=== PATIENT | female | born 1980 | race Caucasian/White ===

== ENCOUNTER 2017-01-22 03:10 | Emergency (ER) | payer MEDICAID ==
[2017-01-22] MEDS ORDERED: Codeine/guaiFENesin 100mg-10 MG/5 ML Soln 118 ML Bottle PO ONE (04:03)
[2017-01-22] MEDS ORDERED: Azithromycin 250 MG Tab PO ONE (04:03)
[2017-01-22 04:24] VITALS: BP 133/78
--- NOTE | 2017-01-22 05:31 | ER ---
DATE SEEN: 01/22/2017 TIME SEEN: 0400. CHIEF COMPLAINT: Hoarseness of the voice. HISTORY OF PRESENT ILLNESS: A 36-year-old female complaining of hoarseness of the voice for at least 4 weeks. It is associated with some coughing that is barky and worse when she lays down, but no fever. No headache. No sore throat. SOCIAL HISTORY: Smoker. ALLERGIES: Amoxicillin. PAST MEDICAL HISTORY: Anemia, type 2 diabetes, obesity, community-acquired pneumonia. PHYSICAL EXAMINATION: GENERAL: Pleasant, not in distress. VITAL SIGNS: Blood pressure is normal, pulse 107, and temperature is 98.1. Oxygenation is 99% on room air. EARS, NOSE, AND THROAT: Negative. NECK: No thyromegaly. CARDIOVASCULAR SYSTEM: Normal. RESPIRATORY SYSTEM: Clear. IMPRESSION: 1. Acute laryngitis. 2. Laryngotracheal bronchitis. TREATMENT: 1. Robitussin with codeine 10 mL q.4 hours p.r.n. 2. Z-Martin. 3. Follow up in the office in 1 to 2 days. Discussed smoking cessation. /[id number] TOMASA/LANNY
== END 2017-01-22 04:15 | disposition home or self-care (01) ==
LOC: FB.ED 03:10
DX: J04.0 Acute laryngitis (principal); J40 Bronchitis, not specified as acute or chronic; E11.9 Type 2 diabetes mellitus without complications; F17.210 Nicotine dependence, cigarettes, uncomplicated; Z88.1 Allergy status to other antibiotic agents
CPT/HCPCS: 99283; A9270

== ENCOUNTER 2017-02-21 09:56 | Observation (INO) | payer MEDICAID, OTHER ==
--- NOTE | 2017-02-21 12:14 | EDM.PDOC ---
ED HPI GENERAL MEDICAL PROBLEM - General Chief Complaint: Upper Extremity Injury/Pain Stated Complaint: rib pain R Time Seen by Provider: 02/21/17 10:00 Source of Information: Reports: Patient History Limitations: Reports: No Limitations - History of Present Illness INITIAL COMMENTS - FREE TEXT/NARRATIVE: 36 y.o.w.f obese w f with h/o gestational Diabetes and Anemia, came to the ed due to acute onset of RUQ of the abdomen, weakness and frequent urinations in the past few months. No chest pain. She was not Dx'd with diabetes yet. No trauma. Mild nausea, no vomiting. No other acute medical issues. BP 142/114 Pulse 104 Temp 37.2 Pulse ox 98% on RA Onset: Today Onset Date: 02/21/17 Onset Time: 06:00 Duration: Hour(s):, Intermittent Location: Reports: Abdomen (RUQ of abdomen) Quality: Reports: Ache, Burning, Dull, Stabbing, Throbbing Severity: Moderate Improves with: Reports: Medication Worsens with: Reports: Eating Context: Reports: Other (RUQ of abdomen) Associated Symptoms: Reports: Loss of Appetite, Nausea/Vomiting (nausea), Weakness, Other (frequest urinations, allways drinking water.) right rib Pain Score (Numeric/FACES): 8 - Related Data Allergies Allergy/AdvReac Type Severity Reaction Status Date / Time amoxicillin [Amoxicillin] Allergy Hives Verified 02/21/17 10:07 Home Meds: Home Meds NK [No Known Home Meds] 01/22/17 [History] Past Medical History - Past Health History Medical/Surgical History: Denies Medical/Surgical History Other Musculoskeletal History: restless legs Endocrine/Metabolic History: Reports: Other (See Below) Hematologic History: Reports: Anemia - Past Surgical History Other Musculoskeletal Surgeries/Procedures:: Carpel tunnel Social & Family History - Family History Family Medical History: Noncontributory - Tobacco Use Smoking Status *Q: Current Every Day Smoker Years of Tobacco use: 23 Packs/Tins Daily: 0.5 Used Tobacco, but Quit: No Second Hand Smoke Exposure: No - Caffeine Use Caffeine Use: Reports: Energy Drinks, Soda - Alcohol Use Days Per Week of Alcohol Use: 0 - Recreational Drug Use Recreational Drug Use: No Review of Systems - Review of Systems Review Of Systems: See Below Constitutional: Reports: Weakness Eyes: Reports: No Symptoms Ears: Reports: No Symptoms Nose: Reports: No Symptoms Mouth/Throat: Reports: No Symptoms Respiratory: Reports: No Symptoms Cardiovascular: Reports: No Symptoms GI/Abdominal: Reports: Abdominal Pain Genitourinary: Reports: No Symptoms Musculoskeletal: Reports: No Symptoms Skin: Reports: No Symptoms Neurological: Reports: No Symptoms Psychiatric: Reports: No Symptoms ED EXAM, GENERAL - Physical Exam Exam: See Below Exam Limited By: No Limitations General Appearance: Alert, WD/WN, Moderate Distress, Obese (morbid) Eye Exam: Bilateral Eye: Normal Inspection Ears: Normal External Exam Ear Exam: Bilateral Ear: Auricle Normal Nose: Normal Inspection, Normal Mucosa Throat/Mouth: Normal Lips, Other (dry mucosal mmebrane) Head: Atraumatic, Normocephalic Neck: Normal Inspection, Supple, Non-Tender, Full Range of Motion Respiratory/Chest: No Respiratory Distress, Lungs Clear, Normal Breath Sounds Cardiovascular: Normal Peripheral Pulses, Regular Rate, Rhythm, No Edema, No Gallop Peripheral Pulses: 1+: Brachial (R) GI/Abdominal: Normal Bowel Sounds, Tender (RUQ of abd. with pos smyth sign.) (Female) Exam: Deferred Rectal (Female) Exam: Deferred Back Exam: Normal Inspection, Full Range of Motion Extremities: Normal Inspection, Normal Range of Motion, Non-Tender, No Pedal Edema, Normal Capillary Refill Neurological: Alert, Oriented, CN II-XII Intact, Normal Cognition, Normal Gait Psychiatric: Normal Affect, Normal Mood Skin Exam: Warm, Dry, Intact, Normal Color, No Rash Lymphatic: No Adenopathy Course - Vital Signs Text/Narrative:: 36 y.o.w.f morbid obese w f with h/o gestational Diabetes and Anemia, came to the ed due to acute onset of RUQ of the abdomen, weakness and frequent urinations in the past few months. No chest pain. She was not Dx'd with diabetes yet. No trauma. Mild nausea, no vomiting. No other acute medical issues. Pt was on Metformin at some time. BP 142/114 Pulse 104 Temp 37.2 Pulse ox 98% on RA PE: Obese, RUQ abd. pain with pos Smyth sign, nausea Imaging: Gall stones, signs of cholecystitis, official report is pending Labs: GLC 425 WBC 7.9 HGB 9.6 HCT 31.1 Na 134 K 3.8 HGBA1C 11.5 UA pos for glucosuria Impression: Cholecystitis, Cholelithiasis. Elevated HGB A1C (11.5), Hyperglycemia, Glucosuria, Anemia. Tx: Dilaudid, Mefoxin, NS, Zofran, Insulin (7 units regular)SQ. 12.01 pm Consultation: , Surgeon: Cholecytectomy at 2 pm, call anesthesia Plan: Dr. Harper tooke the care over at 2 pm, will ask pt to F/U with her PMD Reexam: Pt was stable while here in the ed. Please check the nursing notes for vital signs Last Recorded V/S: Last Vital Signs Temp 37.0 C 02/21/17 17:32 Pulse 107 H 02/21/17 17:47 Resp 18 02/21/17 17:47 BP 105/49 L 02/21/17 17:47 Pulse Ox 95 02/21/17 17:47 - Orders/Labs/Meds Orders: Active Orders 24 hr Category Date Time Status Patient Status [ADT] Routine ADT 02/21/17 15:44 Active Blood Glucose Check, Bedside [RC] ONETIME Care 02/21/17 13:03 Active Blood Glucose Check, Bedside [RC] ONETIME Care 02/21/17 13:43 Active Communication Order [RC] ASDIRECTED Care 02/21/17 13:03 Active Cooling Warming Measures [RC] ASDIRECTED Care 02/21/17 13:03 Active Diabetes Education [RC] Click to Edit Care 02/21/17 15:49 Active Notify Provider [RC] PRN Care 02/21/17 13:03 Active Oxygen Therapy [RC] ASDIRECTED Care 02/21/17 13:03 Active Oxygen Therapy [RC] PRN Care 02/21/17 15:44 Active RT Incentive Spirometry [RC] Q2HWA Care 02/21/17 15:43 Active Up With Assistance [RC] ASDIRECTED Care 02/21/17 15:43 Active Vital Signs [RC] PER UNIT ROUTINE Care 02/21/17 13:03 Active Vital Signs [RC] PER UNIT ROUTINE Care 02/21/17 15:44 Active Clear Liquid Diet [DIET] Diet 02/21/17 Dinner Ordered Acetaminophen/HYDROcodone [[place] 325-7.5 MG] Med 02/21/17 15:43 Active 1 tab PO Q4H PRN Albuterol [Proventil Neb Soln] Med 02/21/17 13:02 Active 2.5 mg NEB ONETIME PRN Lactated Ringers [Ringers, Lactated] 1,000 ml Med 02/21/17 13:15 Active IV ASDIRECTED Lactated Ringers [Ringers, Lactated] 1,000 ml Med 02/21/17 15:45 Active IV ASDIRECTED Morphine Med 02/21/17 15:43 Active 2 mg IVPUSH Q1H PRN cefOXitin [Mefoxin in Dextrose,Iso-Osm 1 GM/50 ML] 1 gm Med 02/21/17 20:00 Active Premix Bag 1 bag IV Q6H Glucose Management Sub Q Reflex [OM.PC] Click to Edit Oth 02/21/17 15:43 Ordered Patient May [OM.PC] Click to Edit Oth 02/21/17 13:03 Ordered Resuscitation Status Routine Resus Stat 02/21/17 15:43 Ordered Medication Orders Hydrocodone Bitart/Acetaminophen ([place] 325-7.5 Mg) 1 tab PO Q4H PRN PRN Reason: Pain (moderate 4-6) Albuterol (Proventil Neb Soln) 2.5 mg NEB ONETIME PRN PRN Reason: Wheezing Last Admin: 02/21/17 13:28 Dose: 2.5 mg Lactated Ringer's (Ringers, Lactated) 1,000 mls @ 0 mls/hr IV ASDIRECTED [facility] PRN Reason: KVO Cefoxitin Sodium 1 gm/ Premix 50 mls @ 100 mls/hr IV Q6H OCTAVIO Lactated Ringer's (Ringers, Lactated) 1,000 mls @ 125 mls/hr IV ASDIRECTED [facility] Last Admin: 02/21/17 18:29 Dose: 125 mls/hr Insulin Aspart (Novolog) 0 unit SUBCUT QIDACANDBED [facility] PRN Reason: Protocol Last Admin: 02/21/17 17:27 Dose: 3 units Morphine Sulfate (Morphine) 2 mg IVPUSH Q1H PRN PRN Reason: Pain (severe 7-10) Nicotine (Habitrol) 21 mg TRDERM Q24H [facility] Last Admin: 02/21/17 17:28 Dose: 21 mg Labs: Laboratory Tests 01/05/18 01/05/18 01/05/18 Range/Units 10:13 10:13 10:22 WBC 7.9 (4.5-12.0) X10-3/uL RBC 4.98 (3.23-5.20) x10(6)uL Hgb 9.6 L (11.5-15.5) g/dL Hct 31.1 (30.0-51.3) % MCV 62.5 L (80-96) fL MCH 19.3 L (27.7-33.6) pg MCHC 30.9 L (32.2-35.4) g/dL RDW 16.9 H (11.5-15.5) % Plt Count 373 H (125-369) X10(3)uL MPV 8.4 (7.4-10.4) fL Neut % (Auto) 66.1 (46-82) % Lymph % (Auto) 25.5 (13-37) % Rock % (Auto) 6.1 (4-12) % Eos % (Auto) 2 (1.0-5.0) % Baso % (Auto) 1 (0-2) % Neut # (Auto) 5.3 (1.6-8.3) # Lymph # (Auto) 2.0 (0.6-5.0) # Rock # (Auto) 0.5 (0.0-1.3) # Eos # (Auto) 0.1 (0.0-0.8) # Baso # (Auto) 0.0 (0.0-0.2) # Sodium (135-145) mmol/L Potassium (3.5-5.3) mmol/L Chloride (100-110) mmol/L Carbon Dioxide (21-32) mmol/L BUN (7-18) mg/dL Creatinine (0.55-1.02) mg/dL Est Cr Clr Drug Dosing mL/min Estimated GFR (MDRD) (>60) BUN/Creatinine Ratio (9-20) Glucose (80-116) mg/dL POC Glucose (80-116) mg/dL Hemoglobin A1c (4.5-6.2) % Calcium (8.6-10.2) mg/dL Total Bilirubin (0.1-1.3) mg/dL Direct Bilirubin (0.10-0.20) mg/dL AST (5-25) IU/L ALT (12-36) U/L Alkaline Phosphatase (56-112) IU/L Total Protein (6.0-8.0) g/dL Albumin (3.5-5.2) g/dL Amylase (25-115) U/L Urine Color Yellow (YELLOW) Urine Appearance Slightly cloudy (CLEAR) Urine pH 6.0 (5.0-6.5) Ur Specific [place] 1.015 (1.010-1.025) Urine Protein Negative (NEGATIVE) mg/dL Urine Glucose (UA) >1000 H (NEGATIVE) mg/dL Urine Ketones Negative (NEGATIVE) mg/dL Urine Occult Blood Negative (NEGATIVE) Urine Nitrite Negative (NEGATIVE) Urine Bilirubin Negative (NEGATIVE) Urine Urobilinogen Normal (NEGATIVE) mg/dL Ur Leukocyte Esterase Negative (NEGATIVE) Urine WBC 0-5 (0) Ur Squamous Epith Cells Few H (NS,R,O) Urine Bacteria Few H (NS) Urine HCG, Qual Negative (NEGATIVE) 02/21/17 02/21/17 02/21/17 Range/Units 10:22 10:22 12:30 WBC (4.5-12.0) X10-3/uL RBC (3.23-5.20) x10(6)uL Hgb (11.5-15.5) g/dL Hct (30.0-51.3) % MCV (80-96) fL MCH (27.7-33.6) pg MCHC (32.2-35.4) g/dL RDW (11.5-15.5) % Plt Count (125-369) X10(3)uL MPV (7.4-10.4) fL Neut % (Auto) (46-82) % Lymph % (Auto) (13-37) % Rock % (Auto) (4-12) % Eos % (Auto) (1.0-5.0) % Baso % (Auto) (0-2) % Neut # (Auto) (1.6-8.3) # Lymph # (Auto) (0.6-5.0) # Rock # (Auto) (0.0-1.3) # Eos # (Auto) (0.0-0.8) # Baso # (Auto) (0.0-0.2) # Sodium 134 L (135-145) mmol/L Potassium 4.4 (3.5-5.3) mmol/L Chloride 100 (100-110) mmol/L Carbon Dioxide 25 (21-32) mmol/L BUN 13 (7-18) mg/dL Creatinine 0.9 (0.55-1.02) mg/dL Est Cr Clr Drug Dosing 78.51 mL/min Estimated GFR (MDRD) > 60 (>60) BUN/Creatinine Ratio 14.4 (9-20) Glucose 483 H* (80-116) mg/dL POC Glucose 306 H (80-116) mg/dL Hemoglobin A1c 11.8 H (4.5-6.2) % Calcium 8.6 (8.6-10.2) mg/dL Total Bilirubin 0.3 (0.1-1.3) mg/dL Direct Bilirubin 0.05 L (0.10-0.20) mg/dL AST 15 (5-25) IU/L ALT 25 (12-36) U/L Alkaline Phosphatase 91 (56-112) IU/L Total Protein 7.4 (6.0-8.0) g/dL Albumin 3.1 L (3.5-5.2) g/dL Amylase 34 (25-115) U/L Urine Color (YELLOW) Urine Appearance (CLEAR) Urine pH (5.0-6.5) Ur Specific [place] (1.010-1.025) Urine Protein (NEGATIVE) mg/dL Urine Glucose (UA) (NEGATIVE) mg/dL Urine Ketones (NEGATIVE) mg/dL Urine Occult Blood (NEGATIVE) Urine Nitrite (NEGATIVE) Urine Bilirubin (NEGATIVE) Urine Urobilinogen (NEGATIVE) mg/dL Ur Leukocyte Esterase (NEGATIVE) Urine WBC (0) Ur Squamous Epith Cells (NS,R,O) Urine Bacteria (NS) Urine HCG, Qual (NEGATIVE) 02/21/17 Range/Units 13:59 WBC (4.5-12.0) X10-3/uL RBC (3.23-5.20) x10(6)uL Hgb (11.5-15.5) g/dL Hct (30.0-51.3) % MCV (80-96) fL MCH (27.7-33.6) pg MCHC (32.2-35.4) g/dL RDW (11.5-15.5) % Plt Count (125-369) X10(3)uL MPV (7.4-10.4) fL Neut % (Auto) (46-82) % Lymph % (Auto) (13-37) % Rock % (Auto) (4-12) % Eos % (Auto) (1.0-5.0) % Baso % (Auto) (0-2) % Neut # (Auto) (1.6-8.3) # Lymph # (Auto) (0.6-5.0) # Rock # (Auto) (0.0-1.3) # Eos # (Auto) (0.0-0.8) # Baso # (Auto) (0.0-0.2) # Sodium (135-145) mmol/L Potassium (3.5-5.3) mmol/L Chloride (100-110) mmol/L Carbon Dioxide (21-32) mmol/L BUN (7-18) mg/dL Creatinine (0.55-1.02) mg/dL Est Cr Clr Drug Dosing mL/min Estimated GFR (MDRD) (>60) BUN/Creatinine Ratio (9-20) Glucose (80-116) mg/dL POC Glucose 257 H (80-116) mg/dL Hemoglobin A1c (4.5-6.2) % Calcium (8.6-10.2) mg/dL Total Bilirubin (0.1-1.3) mg/dL Direct Bilirubin (0.10-0.20) mg/dL AST (5-25) IU/L ALT (12-36) U/L Alkaline Phosphatase (56-112) IU/L Total Protein (6.0-8.0) g/dL Albumin (3.5-5.2) g/dL Amylase (25-115) U/L Urine Color (YELLOW) Urine Appearance (CLEAR) Urine pH (5.0-6.5) Ur Specific [place] (1.010-1.025) Urine Protein (NEGATIVE) mg/dL Urine Glucose (UA) (NEGATIVE) mg/dL Urine Ketones (NEGATIVE) mg/dL Urine Occult Blood (NEGATIVE) Urine Nitrite (NEGATIVE) Urine Bilirubin (NEGATIVE) Urine Urobilinogen (NEGATIVE) mg/dL Ur Leukocyte Esterase (NEGATIVE) Urine WBC (0) Ur Squamous Epith Cells (NS,R,O) Urine Bacteria (NS) Urine HCG, Qual (NEGATIVE) Meds: Medications Generic Name Dose Route Start Last Admin Trade Name Freq PRN Reason Stop Dose Admin Hydrocodone Bitart/Acetaminophen 1 tab 02/21/17 15:43 [place] 325-7.5 Mg PO Q4H PRN Pain (moderate 4-6) Albuterol 2.5 mg 02/21/17 13:02 02/21/17 13:28 Proventil Neb Soln NEB 2.5 mg ONETIME PRN Administration Wheezing Lactated Ringer's 1,000 mls @ 0 mls/hr 02/21/17 13:15 Ringers, Lactated IV ASDIRECTED [facility] KVO Cefoxitin Sodium 1 gm/ Premix 50 mls @ 100 mls/hr 02/21/17 20:00 IV Q6H [facility] Lactated Ringer's 1,000 mls @ 125 mls/hr 02/21/17 15:45 02/21/17 18:29 Ringers, Lactated IV 125 mls/hr ASDIRECTED [facility] Administration Insulin Aspart 0 unit 02/21/17 17:30 02/21/17 17:27 Novolog SUBCUT 3 units QIDACANDBED [facility] Administration Protocol Morphine Sulfate 2 mg 02/21/17 15:43 Morphine IVPUSH Q1H PRN Pain (severe 7-10) Nicotine 21 mg 02/21/17 17:00 02/21/17 17:28 Habitrol TRDERM 21 mg Q24H [facility] Administration Discontinued Medications Generic Name Dose Route Start Last Admin Trade Name Freq PRN Reason Stop Dose Admin Albuterol 2.5 mg 02/21/17 13:02 Proventil Neb Soln NEB ONETIME PRN Wheezing Cefoxitin Sodium 2 gm 02/21/17 13:30 02/21/17 13:57 Mefoxin IV 02/21/17 13:31 2 gm ONETIME ONE Administration Fentanyl 50 mcg 02/21/17 13:02 Sublimaze IVPUSH Q5M PRN Pain (severe 7-10) Hydromorphone HCl 1 mg 02/21/17 12:02 02/21/17 12:25 Dilaudid IVPUSH 02/21/17 12:03 1 mg ONETIME STA Administration Hydromorphone HCl 0.2 mg 02/21/17 13:02 Dilaudid IVPUSH Q10M PRN Pain (moderate 4-6) Hydromorphone HCl 0.2 mg 02/21/17 13:02 Dilaudid IV Q10M PRN Pain (severe 7-10) Sodium Chloride 1,000 mls @ 125 mls/hr 02/21/17 12:15 02/21/17 12:16 Normal Saline IV 125 mls/hr ASDIRECTED [facility] Administration Cefoxitin Sodium 1 gm/ Sodium 50 mls @ 100 mls/hr 02/21/17 12:04 02/21/17 14: 00 Chloride IV 02/21/17 12:33 Not Given ONETIME STA Insulin Human Regular 10 unit 02/21/17 17:30 Humulin R SUBCUT BIDAC [facility] Protocol Insulin Human Regular 7 unit 02/21/17 12:32 02/21/17 12:40 Humulin R SUBCUT 02/21/17 12:33 7 units ONETIME STA Administration Protocol Naloxone HCl 0.2 mg 02/21/17 13:02 Narcan IVPUSH Q1M PRN Respiratory Depression Ondansetron HCl 8 mg 02/21/17 12:17 02/21/17 12:44 Zofran IVPUSH 02/21/17 12:18 8 mg ONETIME ONE Administration Ondansetron HCl 4 mg 02/21/17 13:02 Zofran IVPUSH ONETIME PRN Nausea/Vomiting Promethazine HCl 12.5 mg 02/21/17 13:02 Phenergan IM Q4H PRN Nausea/Vomiting Departure - Departure Time of Disposition: 19:43 Disposition: Refer to Observation Condition: Fair Clinical Impression: Cholelithiasis Qualifiers: Cholelithiasis location: gallbladder Cholecystitis presence: with cholecystitis Cholecystitis acuity: acute Biliary obstruction: without biliary obstruction Qualified Code(s): K80.00 - Calculus of gallbladder with acute cholecystitis without obstruction - Discharge Information
[2017-02-21] MEDS ORDERED: Sodium Chloride 0.9% 1,000 ML IV SCH (12:15)
[2017-02-21] MEDS ORDERED: Ondansetron 4 MG/2 ML SDV IVPUSH ONE (12:17)
[2017-02-21] MEDS: HYDROmorphone 2 MG/ML SDV IVPUSH STA ×2 (12:22→12:25)
[2017-02-21] MEDS ORDERED: Insulin Regular, Human 100 Units/ML 3 ML Vial SUBCUT STA (12:32)
[2017-02-21] MEDS ORDERED: cefOXitin 2 GM in Sodium Chloride 0.9% 100 ML IV STA (12:33)
[2017-02-21] MEDS ORDERED: Ondansetron 4 MG/2 ML SDV IVPUSH PRN (13:02)
[2017-02-21] MEDS ORDERED: HYDROmorphone 2 MG/ML SDV IV PRN (13:02)
[2017-02-21] MEDS ORDERED: HYDROmorphone 2 MG/ML SDV IVPUSH PRN (13:02)
[2017-02-21] MEDS ORDERED: Promethazine 25 MG/ML SDV IM PRN (13:02)
[2017-02-21] MEDS ORDERED: Naloxone 0.4 MG/ML SDV IVPUSH PRN (13:02)
[2017-02-21] MEDS ORDERED: fentaNYL 100 MCG/2 ML SDV IVPUSH PRN (13:02)
[2017-02-21] MEDS ORDERED: Albuterol 0.083% 2.5 MG/3 ML Neb Soln NEB PRN ×2 (13:02)
[2017-02-21] MEDS ORDERED: Lactated Ringers 1,000 ML IV SCH (13:15)
--- NOTE | 2017-02-21 13:15 | US ---
INDICATION: Right upper quadrant abdominal pain. RIGHT UPPER QUADRANT/GALLBLADDER ULTRASOUND: Multiple ultrasonic images were obtained 02/21/2017. No comparison study was available. The gallbladder, although it was normal in size measuring 7.6 x 1.7 x 2.8 cm, did include a 2.33-cm calculus, which moved with change in position of the patient. Although also there was no pericholecystic fluid, wall thickening, or sludge, there was a positive ultrasonic Smyth sign, which can be seen with cholecystitis. This should be correlated clinically, therefore, as no other signs of cholecystitis were identified. The common bile duct was normal in caliber at 3.8 mm. The right kidney appeared normal, measuring 12.4 x 4.4 x 5.7 cm. The liver is somewhat echogenic, suggesting fatty infiltration. IMPRESSION: 1. Cholelithiasis with positive ultrasonic Smyth sign - correlate clinically as to the possibility of acute cholecystitis. 2. Fatty infiltration of the liver. Report was given by phone to Dr. Moe at 1200 hours, 02/21/2017. SUDHA
[2017-02-21] MEDS ORDERED: cefOXitin 2 GM Vial IV ONE (13:30)
--- NOTE | 2017-02-21 14:05 | PREOP ---
ADMISSION DATE: 02/21/2017 HISTORY: This is a 36-year-old female, who presents to the emergency room with a several-day history of right upper quadrant abdominal pain that has been progressively worsening. Laboratory evaluation reveals a normal WBC. Glucose is 483 with an A1c of 11.8. She has been known to have diabetes in the past and states that got better when she lost significant weight. Evaluation today reveals that her abdominal ultrasound shows evidence of acute cholecystitis with positive Smyth sign. She is afebrile. PAST MEDICAL HISTORY: Reviewed. MEDICATIONS: Reviewed. ALLERGIES: Medical allergies, reviewed. PHYSICAL EXAMINATION: GENERAL: Reveals a pleasant lady, resting comfortably. She has received some pain medication. HEENT: Her sclerae are white. SKIN: Not jaundiced. LUNGS: Clear. Respirations are nonlabored. HEART: Regular rate and rhythm without murmur. ABDOMEN: Right upper quadrant tenderness with guarding. The rest of her abdomen is soft and no masses or hernias are palpable. ASSESSMENT: Acute cholecystitis and cholelithiasis. PLAN: The patient will be scheduled for laparoscopic cholecystectomy this afternoon. IV antibiotics have been given. We have discussed the procedure as well as the risks and complications of bleeding, infection, anesthesia, bile leakage, bile duct injury, needing to convert to an open procedure. Informed consent was obtained. /[id number] SAMARIA/LANNY HALEY
[2017-02-21] MEDS ORDERED: Morphine 2 MG/ML Syringe IVPUSH PRN (15:43)
--- NOTE | 2017-02-21 15:43 | PCM.OPNOTE ---
- General Post-Op/Procedure Note Date of Surgery/Procedure: 02/21/17 Operative Procedure(s): Lap [place] Findings: Cholecystitis Pre Op Diagnosis: Acute cholecystitisand Cholelithiasis Post-Op Diagnosis: Same Anesthesia Technique: General ET Tube Primary Surgeon: Luis Harper Anesthesia Provider: Douglas Tatum Pathology: Gallbladder EBL in mLs: 10 Complications: None Condition: Fair
[2017-02-21] MEDS ORDERED: Lidocaine 2% 100 MG/5 ML Syringe IVPUSH ONE (15:54)
[2017-02-21] MEDS ORDERED: Midazolam 1 MG/ML 2 ML SDV IV ONE (15:54)
[2017-02-21] MEDS ORDERED: Neostigmine Methylsulfate 1 MG/ML 5 ML Syringe IV ONE (15:54)
[2017-02-21] MEDS ORDERED: HYDROmorphone 2 MG/ML SDV IV ONE (15:54)
[2017-02-21] MEDS ORDERED: Rocuronium 50 MG/5 ML Vial IV ONE (15:54)
[2017-02-21] MEDS ORDERED: fentaNYL 100 MCG/2 ML SDV IV ONE (15:54)
[2017-02-21] MEDS ORDERED: Sodium Chloride 0.9% 1,000 ML IV ONE (15:54)
[2017-02-21] MEDS ORDERED: Propofol 200 MG/20 ML SDV IV ONE (15:54)
[2017-02-21] MEDS ORDERED: Succinylcholine 200 MG/10 ML MDV IV ONE (15:54)
[2017-02-21] MEDS ORDERED: Nicotine 21 MG/24 Hr Patch TRDERM SCH (17:00)
[2017-02-21] MEDS: Insulin Aspart 100 Units/ML 3 ML Pen SUBCUT SCH ×2 (17:27→20:57)
[2017-02-21] MEDS ORDERED: Insulin Regular, Human 100 Units/ML 3 ML Vial SUBCUT SCH (17:30)
[2017-02-21] MEDS: Lactated Ringers 1,000 ML IV SCH (18:29)
[2017-02-21] MEDS: cefOXitin 1 GM in Premix Bag 1 BAG IV SCH (20:07)
[2017-02-21] MEDS: Acetaminophen/HYDROcodone 325-7.5 MG Tab PO PRN (21:06)
[2017-02-22] MEDS: Acetaminophen/HYDROcodone 325-7.5 MG Tab PO PRN ×2 (01:10→06:28)
[2017-02-22] MEDS: cefOXitin 1 GM in Premix Bag 1 BAG IV SCH ×2 (02:06→07:34)
[2017-02-22] MEDS: Lactated Ringers 1,000 ML IV SCH (04:40)
[2017-02-22] MEDS: Insulin Aspart 100 Units/ML 3 ML Pen SUBCUT SCH (07:30)
[2017-02-22 09:30] VITALS: BP 100/56
--- NOTE | 2017-02-22 10:22 | PCM.SURGPN ---
- General Info Date of Service: 02/22/17 POD#: 1 Functional Status: Reports: Pain Controlled, Tolerating Diet, Ambulating, Urinating - Review of Systems General: Reports: No Symptoms Gastrointestinal: Reports: Abdominal Pain (gone in RUQ; mild incisional pain) - Patient Data Vitals - Most Recent: Last Vital Signs Temp 98 F 02/22/17 08:00 Pulse 70 02/22/17 10:00 Resp 18 02/22/17 08:00 BP 100/56 L 02/22/17 08:00 Pulse Ox 95 02/22/17 10:00 Weight - Most Recent: 111.13 kg I&O - Last 24 Hours: Intake & Output 02/21/17 02/22/17 02/22/17 22:59 06:59 14:59 Intake Total 738 1389 Output Total 350 Balance 388 1389 Lab Results Last 24 Hrs: Laboratory Results - last 24 hr 02/21/17 02/21/17 02/21/17 Range/Units 16:06 17:27 20:56 POC Glucose 282 H 228 H 274 H (80-116) mg/dL 02/22/17 Range/Units 06:21 POC Glucose 239 H (80-116) mg/dL Med Orders - Current: Current Medications Hydrocodone Bitart/Acetaminophen ([place] 325-7.5 Mg) 1 tab PO Q4H PRN PRN Reason: Pain (moderate 4-6) Last Admin: 02/22/17 06:28 Dose: 1 tab Albuterol (Proventil Neb Soln) 2.5 mg NEB ONETIME PRN PRN Reason: Wheezing Last Admin: 02/21/17 13:28 Dose: 2.5 mg Lactated Ringer's (Ringers, Lactated) 1,000 mls @ 0 mls/hr IV ASDIRECTED [facility] PRN Reason: KVO Cefoxitin Sodium 1 gm/ Premix 50 mls @ 100 mls/hr IV Q6H [facility] Last Admin: 02/22/17 07:34 Dose: 100 mls/hr Lactated Ringer's (Ringers, Lactated) 1,000 mls @ 125 mls/hr IV ASDIRECTED [facility] Last Admin: 02/22/17 04:40 Dose: 125 mls/hr Insulin Aspart (Novolog) 0 unit SUBCUT QIDACANDBED [facility] PRN Reason: Protocol Last Admin: 02/22/17 07:30 Dose: 3 units Morphine Sulfate (Morphine) 2 mg IVPUSH Q1H PRN PRN Reason: Pain (severe 7-10) Nicotine (Habitrol) 21 mg TRDERM Q24H [facility] Last Admin: 02/21/17 17:28 Dose: 21 mg Discontinued Medications Albuterol (Proventil Neb Soln) 2.5 mg NEB ONETIME PRN PRN Reason: Wheezing Cefoxitin Sodium (Mefoxin) 2 gm IV ONETIME ONE Stop: 02/21/17 13:31 Last Admin: 02/21/17 13:57 Dose: 2 gm Fentanyl (Sublimaze) 50 mcg IVPUSH Q5M PRN PRN Reason: Pain (severe 7-10) Hydromorphone HCl (Dilaudid) 1 mg IVPUSH ONETIME STA Stop: 02/21/17 12:03 Last Admin: 02/21/17 12:25 Dose: 1 mg Hydromorphone HCl (Dilaudid) 0.2 mg IVPUSH Q10M PRN PRN Reason: Pain (moderate 4-6) Hydromorphone HCl (Dilaudid) 0.2 mg IV Q10M PRN PRN Reason: Pain (severe 7-10) Sodium Chloride (Normal Saline) 1,000 mls @ 125 mls/hr IV ASDIRECTED [facility] Last Admin: 02/21/17 12:16 Dose: 125 mls/hr Cefoxitin Sodium 1 gm/ Sodium (Chloride) 50 mls @ 100 mls/hr IV ONETIME STA Stop: 02/21/17 12:33 Last Admin: 02/21/17 14:00 Dose: Not Given Cefoxitin Sodium (Mefoxin In Dextrose,Iso-Osm 1 Gm/50 Ml) Confirm Administered Dose 50 mls @ as directed .ROUTE .STK-MED ONE Stop: 02/22/17 01:08 Last Admin: 02/22/17 02:28 Dose: Not Given Insulin Human Regular (Humulin R) 10 unit SUBCUT BIDAC [facility] PRN Reason: Protocol Insulin Human Regular (Humulin R) 7 unit SUBCUT ONETIME STA PRN Reason: Protocol Stop: 02/21/17 12:33 Last Admin: 02/21/17 12:40 Dose: 7 units Naloxone HCl (Narcan) 0.2 mg IVPUSH Q1M PRN PRN Reason: Respiratory Depression Ondansetron HCl (Zofran) 8 mg IVPUSH ONETIME ONE Stop: 02/21/17 12:18 Last Admin: 02/21/17 12:44 Dose: 8 mg Ondansetron HCl (Zofran) 4 mg IVPUSH ONETIME PRN PRN Reason: Nausea/Vomiting Promethazine HCl (Phenergan) 12.5 mg IM Q4H PRN PRN Reason: Nausea/Vomiting - Exam Wound/Incisions: Healing Well General: Alert, Oriented, Cooperative GI/Abdominal Exam: Soft, Non-Tender - Problem List Review Problem List Initiated/Reviewed/Updated: Yes - My Orders Last 24 Hours: Active Orders 24 hr Category Date Time Status Accu Check [Blood Glucose Check, Bedside] [RC] Care 02/21/17 20:32 Active QIDACANDBED Consistent Carbohydrate Diet [DIET] Diet 02/22/17 Breakfast Active Insulin Aspart [NovoLOG] Med 02/21/17 17:30 Active 0 unit SUBCUT QIDACANDBED Nicotine [Habitrol] Med 02/21/17 17:00 Active 21 mg TRDERM Q24H Medication Orders Hydrocodone Bitart/Acetaminophen ([place] 325-7.5 Mg) 1 tab PO Q4H PRN PRN Reason: Pain (moderate 4-6) Last Admin: 02/22/17 06:28 Dose: 1 tab Admin: 02/22/17 01:10 Dose: 1 tab Admin: 02/21/17 21:06 Dose: 1 tab Albuterol (Proventil Neb Soln) 2.5 mg NEB ONETIME PRN PRN Reason: Wheezing Last Admin: 02/21/17 13:28 Dose: 2.5 mg Lactated Ringer's (Ringers, Lactated) 1,000 mls @ 0 mls/hr IV ASDIRECTED [facility] PRN Reason: KVO Cefoxitin Sodium 1 gm/ Premix 50 mls @ 100 mls/hr IV Q6H [facility] Last Admin: 02/22/17 07:34 Dose: 100 mls/hr Infusion: 02/22/17 02:36 Dose: 100 mls/hr Admin: 02/22/17 02:06 Dose: 100 mls/hr Infusion: 02/21/17 20:37 Dose: 100 mls/hr Admin: 02/21/17 20:07 Dose: 100 mls/hr Lactated Ringer's (Ringers, Lactated) 1,000 mls @ 125 mls/hr IV ASDIRECTED [facility] Last Admin: 02/22/17 04:40 Dose: 125 mls/hr Infusion: 02/22/17 02:29 Dose: 125 mls/hr Admin: 02/21/17 18:29 Dose: 125 mls/hr Insulin Aspart (Novolog) 0 unit SUBCUT QIDACANDBED [facility] PRN Reason: Protocol Last Admin: 02/22/17 07:30 Dose: 3 units Admin: 02/21/17 20:57 Dose: 4 units Admin: 02/21/17 17:27 Dose: 3 units Morphine Sulfate (Morphine) 2 mg IVPUSH Q1H PRN PRN Reason: Pain (severe 7-10) Nicotine (Habitrol) 21 mg TRDERM Q24H [facility] Last Admin: 02/21/17 17:28 Dose: 21 mg - Assessment Assessment (Free Text/Narrative):: Doing well - Plan Plan (Free Text/Narrative):: Discharge to home f/u with me and PCP next week for diabetes care
--- NOTE | 2017-02-27 18:57 | OR ---
DATE OF OPERATION: 02/27/2017 SURGEON: Luis Harper MD PREOPERATIVE DIAGNOSES: Acute cholecystitis and cholelithiasis. POSTOPERATIVE DIAGNOSES: Acute cholecystitis and cholelithiasis. PROCEDURE: Laparoscopic cholecystectomy. ANESTHESIA: General. PROCEDURE IN DETAIL: The patient was brought to the operating room, where general endotracheal anesthesia was administered. The abdomen was prepped with ChloraPrep and draped sterilely. An infraumbilical incision was made and extended into the peritoneal cavity without difficulty. The Kerline cannulator was introduced and a pneumoperitoneum obtained. The remaining three 5-mm ports were placed in the usual positions. General exploration revealed the surface of the liver, stomach, omentum, bowel, and peritoneal surfaces to be normal. The gallbladder was grasped and retracted cephalad. The cystic artery and cystic duct were clearly dissected free. Minimal oozing occurred during the dissection. The cystic artery was doubly clipped proximally and once distally and then transected. The anatomy of the cystic duct was reconfirmed and could be seen entering the gallbladder and extending towards the common bile duct. This was doubly clipped proximally and once distally and then transected. The gallbladder was then removed from the bed of the liver without difficulty. No bile leakage occurred. The gallbladder was brought out through the umbilical incision. The right upper quadrant was irrigated and inspected, return was clear, and hemostasis was assured. Ports were removed under direct vision and remained hemostatic. The umbilical fascia was closed with [id number] #0 Vicryl. The skin was closed with #4-0 Vicryl subcuticular sutures. Benzoin and Steri-Strips were placed and Band-Aids applied. The patient tolerated the procedure well. Estimated blood loss is 10 cc. Patient returned to postanesthesia in stable condition. /[id number] SAMARIA/LANNY
== END 2017-02-22 10:59 | disposition home or self-care (01) ==
LOC: FB.ED 09:56 → FB.SDS 12:38 → FB.MS 15:44
PROVIDERS: ADMIT Surgery; ATTEND Surgery
DX: K80.10 Calculus of gallbladder with chronic cholecystitis without obstruction (principal); E66.9 Obesity, unspecified; Z88.1 Allergy status to other antibiotic agents; F17.200 Nicotine dependence, unspecified, uncomplicated
CPT/HCPCS: 00790; 36415; 47562; 76705; 80048; 80076; 81001; 81025; 82150; 82962; 83036; 85025; 88304; 94150; 94640; 96361; 96365; 96366; 96375; 96376; 99284; A9270; G0378; J0330; J0694; J1170; J1815; J2250; J2405; J2704; J3010; J7040; J7120; 96372; 96374; J7030

== ENCOUNTER 2017-08-27 01:08 | Emergency (ER) | payer SELFPAY ==
[2017-08-27] MEDS ORDERED: Ibuprofen 600 MG Tab PO ONE (01:37)
--- NOTE | 2017-08-27 01:50 | EDM.PDOC ---
ED HPI GENERAL MEDICAL PROBLEM - General Chief Complaint: Fever Stated Complaint: CHILLS Time Seen by Provider: 08/27/17 01:30 Source of Information: Reports: Patient, Old Records History Limitations: Reports: No Limitations - History of Present Illness INITIAL COMMENTS - FREE TEXT/NARRATIVE: Ottoniel Steiner comes to [facility] ED with a 24 hr hx of fevers, chills, myalgias, sore throat, and malaise. There is no cough, GI upset, rash or voiding sxs. She does not take any meds for diabetes mellitus. She last took some Tylenol about 12 hours ago. 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: Other GEOSPATIAL APPLICATIONS DEVELOPER History: I, PARA I Other Musculoskeletal History: restless legs Endocrine/Metabolic History: Reports: Diabetes, Type II, Obesity/BMI 30+ Hematologic History: Reports: Anemia, Blood Transfusion(s), Iron Deficiency Oncologic (Cancer) History: Reports: None - Infectious Disease History Infectious Disease History: Reports: Chicken Pox - Past Surgical History Head Surgeries/Procedures: Reports: None GI Surgical History: Reports: Cholecystectomy, Colonoscopy, EGD Female Surgical History: Reports: Section Other Female Surgeries/Procedures: [id number] Musculoskeletal Surgical History: Reports: Carpal Tunnel Other Musculoskeletal Surgeries/Procedures:: bilat Carpel tunnel surgery Social & Family History - Family History Family Medical History: Noncontributory - Tobacco Use Smoking Status *Q: Current Status Unknown Years of Tobacco use: 18 Packs/Tins Daily: 0.7 - Caffeine Use Caffeine Use: Reports: Energy Drinks, Soda - Recreational Drug Use Recreational Drug Use: No ED ROS GENERAL - Review of Systems Review Of Systems: See Below Constitutional: Reports: Fever, Chills, Malaise, Weakness HEENT: Reports: Throat Pain Respiratory: Reports: No Symptoms Cardiovascular: Reports: No Symptoms Endocrine: Reports: No Symptoms GI/Abdominal: Reports: No Symptoms : Reports: No Symptoms Musculoskeletal: Reports: Neck Pain, Back Pain Skin: Reports: No Symptoms Neurological: Reports: No Symptoms Psychiatric: Reports: No Symptoms Hematologic/Lymphatic: Reports: Anemia Immunologic: Reports: No Symptoms ED EXAM, GENERAL - Physical Exam Exam: See Below Exam Limited By: No Limitations General Appearance: Alert, WD/WN, No Apparent Distress, Anxious Eye Exam: Bilateral Eye: EOMI, Normal Inspection, PERRL Ears: Normal External Exam, Normal TMs Nose: Normal Inspection Throat/Mouth: Normal Inspection, Normal Lips, Normal Teeth, Normal Gums, Normal Oropharynx, Normal Voice, No Airway Compromise Head: Normocephalic Neck: Normal Inspection, Supple Respiratory/Chest: Lungs Clear, Normal Breath Sounds, Chest Non-Tender Cardiovascular: Regular Rate, Rhythm, No Murmur GI/Abdominal: Normal Bowel Sounds, Soft, Non-Tender, No Organomegaly, No Distention, No Mass (Female) Exam: Deferred Rectal (Female) Exam: Deferred Back Exam: Normal Inspection Extremities: Normal Inspection Neurological: Alert, Oriented, CN II-XII Intact, Normal Cognition, Normal Gait, No Motor/Sensory Deficits Psychiatric: Normal Affect, Anxious Skin Exam: Warm, Dry, Intact Lymphatic: No Adenopathy Course - Vital Signs Text/Narrative:: Following assessment at the [facility] ED, I administered Ibuprofen 600 mg and completed some screening labs. Her Hgb 9.4 gm has improved, WBC 75305, plts normal. Her non FBS 347 mgs % was addressed, currently unwilling to see PCP for management because of finances. A UC was set up also. Last Recorded V/S: Last Vital Signs Temp 37.6 C 08/27/17 02:45 Pulse 124 H 08/27/17 01:12 Resp 20 08/27/17 01:12 BP 157/81 H 08/27/17 01:12 Pulse Ox 100 08/27/17 01:12 - Orders/Labs/Meds Orders: Active Orders 24 hr Category Date Time Status CULTURE URINE [RM] Stat Lab 08/27/17 02:19 Ordered URINALYSIS W/MICROSCOPIC [UA W/MICROSCOPIC] [URIN] Stat Lab 08/27/17 01:45 Ordered Labs: Laboratory Tests 08/27/17 08/27/17 08/27/17 Range/Units 01:55 01:55 02:00 WBC 11.2 (4.5-12.0) X10-3/uL RBC 5.15 (3.23-5.20) x10(6)uL Hgb 9.4 L (11.5-15.5) g/dL Hct 31.1 (30.0-51.3) % MCV 60.4 L (80-96) fL MCH 18.3 L (27.7-33.6) pg MCHC 30.4 L (32.2-35.4) g/dL RDW 17.2 H (11.5-15.5) % Plt Count 370 H (125-369) X10(3)uL MPV 8.5 (7.4-10.4) fL Neut % (Auto) 84.5 H (46-82) % Lymph % (Auto) 9.8 L (13-37) % [place] % (Auto) 4.0 (4-12) % Eos % (Auto) 0 L (1.0-5.0) % Baso % (Auto) 2 (0-2) % Neut # (Auto) 9.5 H (1.6-8.3) # Lymph # (Auto) 1.1 (0.6-5.0) # [place] # (Auto) 0.4 (0.0-1.3) # Eos # (Auto) 0.0 (0.0-0.8) # Baso # (Auto) 0.2 (0.0-0.2) # Sodium 134 L (135-145) mmol/L Potassium 3.5 (3.5-5.3) mmol/L Chloride 97 L (100-110) mmol/L Carbon Dioxide 26 (21-32) mmol/L BUN 7 (7-18) mg/dL Creatinine 0.9 (0.55-1.02) mg/dL Est Cr Clr Drug Dosing 75.34 mL/min Estimated GFR (MDRD) > 60 (>60) BUN/Creatinine Ratio 7.8 L (9-20) Glucose 347 H D (80-116) mg/dL Calcium 8.4 L (8.6-10.2) mg/dL Urine Color Yellow (YELLOW) Urine Appearance Slightly cloudy (CLEAR) Urine pH 5.0 (5.0-6.5) Ur Specific [place] 1.010 (1.010-1.025) Urine Protein Negative (NEGATIVE) mg/dL Urine Glucose (UA) >1000 H (NEGATIVE) mg/dL Urine Ketones Negative (NEGATIVE) mg/dL Urine Occult Blood Large H (NEGATIVE) Urine Nitrite Negative (NEGATIVE) Urine Bilirubin Negative (NEGATIVE) Urine Urobilinogen Normal (NEGATIVE) mg/dL Ur Leukocyte Esterase Moderate H (NEGATIVE) Urine RBC 5-10 (0) Urine WBC 5-10 (0) Ur Squamous Epith Cells Moderate H (NS,R,O) Urine Bacteria Moderate H (NS) Meds: Medications Discontinued Medications Generic Name Dose Route Start Last Admin Trade Name Freq PRN Reason Stop Dose Admin Ibuprofen 600 mg 08/27/17 01:37 08/27/17 01:45 Motrin PO 08/27/17 01:38 600 mg ONETIME ONE Administration Departure - Departure Time of Disposition: 02:59 Disposition: Home, Self-Care 01 Condition: Fair Clinical Impression: Diabetes mellitus, Acute febrile illness - Discharge Information *PRESCRIPTION DRUG MONITORING PROGRAM REVIEWED*: Not Applicable *COPY OF PRESCRIPTION DRUG MONITORING REPORT IN PATIENT CHRISTINE: Not Applicable Referrals: PCP,None [Primary Care Provider] - Forms: ED Department Discharge - Problem List & Annotations (1) Acute febrile illness SNOMED Code(s): 652825752 Code(s): R50.9 - FEVER, UNSPECIFIED Status: Acute Current Visit: Yes Annotation/Comment:: I suggested Tylenol or NSAIDs for fever. (2) Diabetes mellitus SNOMED Code(s): 22419390 Code(s): E11.9 - TYPE 2 DIABETES MELLITUS WITHOUT COMPLICATIONS Status: Acute Current Visit: Yes Annotation/Comment:: Her Type II DM is poorly controlled, and she was advised to resume Metformin 500mg bid and check Glu-Glu bid and follow up with PCP this week. - Problem List Review Problem List Initiated/Reviewed/Updated: Yes - My Orders Last 24 Hours: My Active Orders 08/27/17 01:45 URINALYSIS W/MICROSCOPIC [UA W/MICROSCOPIC] [URIN] Stat 08/27/17 02:19 CULTURE URINE [RM] Stat - Assessment/Plan Last 24 Hours: My Active Orders 08/27/17 01:45 URINALYSIS W/MICROSCOPIC [UA W/MICROSCOPIC] [URIN] Stat 08/27/17 02:19 CULTURE URINE [RM] Stat Plan: See PCP regarding managment of Type 2 DM.
[2017-08-27 03:30] VITALS: BP 126/67
== END 2017-08-27 03:09 | disposition home or self-care (01) ==
LOC: FB.ED 01:08
DX: R50.9 Fever, unspecified (principal); E11.9 Type 2 diabetes mellitus without complications; F17.210 Nicotine dependence, cigarettes, uncomplicated; Z88.1 Allergy status to other antibiotic agents; D64.9 Anemia, unspecified; Z79.899 Other long term (current) drug therapy
CPT/HCPCS: 36415; 80048; 81001; 85025; 87086; 99283; A9270-GY

== ENCOUNTER 2019-02-08 22:54 | Emergency (ER) | payer SELFPAY ==
--- NOTE | 2019-02-08 23:12 | EDM.PDOC ---
ED HPI GENERAL MEDICAL PROBLEM - General Chief Complaint: Fever Stated Complaint: FEVER Time Seen by Provider: 02/08/19 23:12 Source of Information: Reports: Patient History Limitations: Reports: No Limitations - History of Present Illness INITIAL COMMENTS - FREE TEXT/NARRATIVE: 38-year-old female who reports yesterday she developed fatigue and slept most of the day. Today at approximately 9 AM, she developed her with some chills and she has had fever off and on through the day. She also developed a cough today but no difficulty breathing. Tonight she reports left sided abdominal pain that seems to have come and gone. At the time that I was evaluating the patient she rated her pain as a 0/10 and reporting that she had no pain. She has had mild nausea but no vomiting. No dysuria or hematuria. She has had no diarrhea. She does report that she was exposed to some sick children one to 2 weeks ago and vomiting and diarrhea for about a week. They also had some nasal congestion. She had no symptoms at all she was caring for the children and none until just yesterday as mentioned above. She tells me that she does have diabetes mellitus and is supposed to be on metformin but has not taken this medication for the past 6 months because been unable to afford this. There are no other associated signs or symptoms. There are no other modifying factors. 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: Reports: Acetaminophen - Related Data Allergies Allergy/AdvReac Type Severity Reaction Status Date / Time amoxicillin [Amoxicillin] Allergy Hives Verified 02/08/19 23:05 Home Meds: Home Meds metFORMIN [Glucophage] 1,000 mg PO DAILY 09/19/17 [History] Acetaminophen [Tylenol] 650 mg PO Q4HR PRN 02/20/18 [History] Empagliflozin [Jardiance] 10 mg PO DAILY 02/20/18 [History] Ferrous Sulfate [Iron] 325 mg PO DAILY 02/20/18 [History] Levofloxacin [Levaquin] 500 mg PO DAILY #10 tablet 02/20/18 [Rx] Sulfamethoxazole/Trimethoprim [Bactrim Ds Tablet] 1 each PO BID 10 Days #20 tablet 02/09/19 [Rx] Past Medical History Respiratory History: Reports: Bronchitis, Recurrent 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, 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 Other Musculoskeletal History: restless legs Endocrine/Metabolic History: Reports: Diabetes, Type II, Obesity/BMI 30+ Hematologic History: Reports: Anemia, Blood Transfusion(s), Iron Deficiency - Infectious Disease History Infectious Disease History: Reports: Chicken Pox - Past Surgical History GI Surgical History: Reports: Cholecystectomy, Colonoscopy, EGD Female Surgical History: Reports: Section Other Female Surgeries/Procedures: [id number] Musculoskeletal Surgical History: Reports: Carpal Tunnel Other Musculoskeletal Surgeries/Procedures:: bilat Carpel tunnel surgery Social & Family History - Tobacco Use Smoking Status *Q: Current Every Day Smoker - Caffeine Use Caffeine Use: Reports: Energy Drinks, Soda - Alcohol Use Alcohol Use History: No - Living Situation & Occupation Occupation: Unemployed ED ROS GENERAL - Review of Systems Review Of Systems: See Below Constitutional: Reports: Fever (Subjective), Chills, Malaise, Fatigue HEENT: Reports: No Symptoms Respiratory: Reports: Cough Cardiovascular: Reports: No Symptoms GI/Abdominal: Reports: Abdominal Pain (Off-and-on), Nausea : Reports: No Symptoms Musculoskeletal: Reports: No Symptoms Skin: Reports: No Symptoms Neurological: Reports: No Symptoms Hematologic/Lymphatic: Reports: No Symptoms Immunologic: Reports: No Symptoms ED EXAM, GENERAL - Physical Exam Exam: See Below Exam Limited By: No Limitations General Appearance: Alert, WD/WN, Mild Distress Eye Exam: Bilateral Eye: EOMI, Normal Inspection, PERRL Ears: Normal External Exam, Hearing Grossly Normal Ear Exam: Bilateral Ear: Auricle Normal Nose: Normal Inspection, Normal Mucosa, No Blood Throat/Mouth: Normal Voice, No Airway Compromise, Other (Dry mucous membranes) Head: Atraumatic, Normocephalic Neck: Normal Inspection, Supple, Non-Tender, Full Range of Motion Respiratory/Chest: No Respiratory Distress, No Accessory Muscle Use, Chest Non- Tender, Wheezing (That clears with cough) Cardiovascular: Normal Peripheral Pulses, Regular Rate, Rhythm, No Murmur, JVD Peripheral Pulses: 2+: Radial (L), Radial (R), Dorsalis Pedis (L), Dorsalis Pedis (R) GI/Abdominal: Normal Bowel Sounds, Soft, No Organomegaly, No Mass, Tender (At the end of my exam she did have some tenderness with palpation in her left rib and left mid quadrant. There are no masses. There was no rebound.) Back Exam: Normal Inspection Extremities: Normal Inspection, Normal Range of Motion, Non-Tender, No Pedal Edema, Normal Capillary Refill Neurological: Alert, Oriented, CN II-XII Intact, Normal Cognition, No Motor/ Sensory Deficits Skin Exam: Warm, Dry, Intact, Normal Color, No Rash Course - Vital Signs Last Recorded V/S: Last Vital Signs Temp 36.8 C 02/09/19 02:17 Pulse 90 02/09/19 02:17 Resp 18 02/09/19 02:17 BP 124/65 02/09/19 02:17 Pulse Ox 99 02/09/19 02:17 - Orders/Labs/Meds Orders: Active Orders 24 hr Category Date Time Status Accu Check [Blood Glucose Check, Bedside] [] ONETIME Care 02/09/19 02:02 Active Blood Glucose Check, Bedside [] ONETIME Care 02/08/19 23:10 Active Abdomen Pelvis wo Cont [CT] Stat Exams 02/09/19 01:06 Taken CULTURE URINE [RM] Stat Lab 02/09/19 00:33 Received Sodium Chloride 0.9% [Saline Flush] Med 02/08/19 23:32 Active 10 ml FLUSH ASDIRECTED PRN Peripheral IV Insertion Adult [OM.PC] Routine Oth 02/08/19 23:32 Ordered Medication Orders Sodium Chloride (Saline Flush) 10 ml FLUSH ASDIRECTED PRN PRN Reason: Keep Vein Open Last Admin: 02/09/19 02:08 Dose: 10 ml Admin: 02/08/19 23:42 Dose: 10 ml Labs: Laboratory Tests 02/08/19 02/08/19 02/08/19 Range/Units 23:45 23:45 23:45 WBC 10.7 (4.5-12.0) X10-3/uL RBC 5.02 (3.23-5.20) x10(6)uL Hgb 9.5 L (11.5-15.5) g/dL Hct 30.6 (30.0-51.3) % MCV 60.9 L (80-96) fL MCH 18.8 L (27.7-33.6) pg MCHC 30.9 L (32.2-35.4) g/dL RDW 17.4 H (11.5-15.5) % Plt Count 254 (125-369) X10(3)uL MPV 8.6 (7.4-10.4) fL Add Manual Diff Yes Neutrophils % (Manual) 94 H (46-82) % Band Neutrophils % 1 (0-6) % Lymphocytes % (Manual) 3 L (13-37) % Monocytes % (Manual) 2 L (4-12) % Sodium 129 L (135-145) mmol/L Potassium 3.3 L (3.5-5.3) mmol/L Chloride 95 L (100-110) mmol/L Carbon Dioxide 22 (21-32) mmol/L BUN 13 (7-18) mg/dL Creatinine 1.1 H (0.55-1.02) mg/dL Est Cr Clr Drug Dosing 60.47 mL/min Estimated GFR (MDRD) 56 L (>60) BUN/Creatinine Ratio 11.8 (9-20) Glucose 461 H* D (80-116) mg/dL Calcium 7.8 L (8.6-10.2) mg/dL Total Bilirubin 1.0 (0.1-1.3) mg/dL AST 67 H D (5-25) IU/L ALT 54 H D (12-36) U/L Alkaline Phosphatase 98 (56-112) IU/L C-Reactive Protein 39.6 H* (0.5-0.9) mg/dL Total Protein 6.6 (6.0-8.0) g/dL Albumin 2.5 L (3.5-5.2) g/dL Globulin 4.1 g/dL Albumin/Globulin Ratio 0.6 Urine Color (YELLOW) Urine Appearance (CLEAR) Urine pH (5.0-6.5) Ur Specific [place] (1.010-1.025) Urine Protein (NEGATIVE) mg/dL Urine Glucose (UA) (NORMAL) mg/dL Urine Ketones (NEGATIVE) mg/dL Urine Occult Blood (NEGATIVE) Urine Nitrite (NEGATIVE) Urine Bilirubin (NEGATIVE) Urine Urobilinogen (NEGATIVE) mg/dL Ur Leukocyte Esterase (NEGATIVE) Urine RBC (0-5) Urine WBC (0-5) Ur Squamous Epith Cells (NS,R,O) Urine Bacteria (NS) Urine HCG, Qual (NEGATIVE) 02/09/19 02/09/19 Range/Units 00:33 00:33 WBC (4.5-12.0) X10-3/uL RBC (3.23-5.20) x10(6)uL Hgb (11.5-15.5) g/dL Hct (30.0-51.3) % MCV (80-96) fL MCH (27.7-33.6) pg MCHC (32.2-35.4) g/dL RDW (11.5-15.5) % Plt Count (125-369) X10(3)uL MPV (7.4-10.4) fL Add Manual Diff Neutrophils % (Manual) (46-82) % Band Neutrophils % (0-6) % Lymphocytes % (Manual) (13-37) % Monocytes % (Manual) (4-12) % Sodium (135-145) mmol/L Potassium (3.5-5.3) mmol/L Chloride (100-110) mmol/L Carbon Dioxide (21-32) mmol/L BUN (7-18) mg/dL Creatinine (0.55-1.02) mg/dL Est Cr Clr Drug Dosing mL/min Estimated GFR (MDRD) (>60) BUN/Creatinine Ratio (9-20) Glucose (80-116) mg/dL Calcium (8.6-10.2) mg/dL Total Bilirubin (0.1-1.3) mg/dL AST (5-25) IU/L ALT (12-36) U/L Alkaline Phosphatase (56-112) IU/L C-Reactive Protein (0.5-0.9) mg/dL Total Protein (6.0-8.0) g/dL Albumin (3.5-5.2) g/dL Globulin g/dL Albumin/Globulin Ratio Urine Color Yellow (YELLOW) Urine Appearance Cloudy (CLEAR) Urine pH 5.0 (5.0-6.5) Ur Specific [place] 1.015 (1.010-1.025) Urine Protein 30 H (NEGATIVE) mg/dL Urine Glucose (UA) >1000 H (NORMAL) mg/dL Urine Ketones 15 H (NEGATIVE) mg/dL Urine Occult Blood Moderate H (NEGATIVE) Urine Nitrite Negative (NEGATIVE) Urine Bilirubin Negative (NEGATIVE) Urine Urobilinogen 1 H (NEGATIVE) mg/dL Ur Leukocyte Esterase Large H (NEGATIVE) Urine RBC 10-20 H (0-5) Urine WBC Semi-packed H (0-5) Ur Squamous Epith Cells Occasional (NS,R,O) Urine Bacteria Many H (NS) Urine HCG, Qual Negative (NEGATIVE) Meds: Medications Generic Name Dose Route Start Last Admin Trade Name Freq PRN Reason Stop Dose Admin Sodium Chloride 10 ml 02/08/19 23:32 02/09/19 02:08 Saline Flush FLUSH 10 ml ASDIRECTED PRN Administration Keep Vein Open Discontinued Medications Generic Name Dose Route Start Last Admin Trade Name Freq PRN Reason Stop Dose Admin Ceftriaxone Sodium 1 gm 02/09/19 02:00 02/09/19 02:08 Rocephin IVPUSH 02/09/19 02:01 1 gm ONETIME ONE Administration Sodium Chloride 1,000 mls @ 999 mls/hr 02/08/19 23:33 02/08/19 23:51 Normal Saline IV 02/09/19 00:33 999 mls/hr .BOLUS ONE Administration Ondansetron HCl 4 mg 02/08/19 23:33 02/08/19 23:52 Zofran Odt PO 02/08/19 23:34 4 mg ONETIME ONE Administration Potassium Chloride 40 meq 02/09/19 02:00 Klor-Con PO ASDIRECTED OCTAVIO Potassium Chloride 40 meq 02/09/19 02:03 02/09/19 02:08 Klor-Con PO 02/09/19 02:04 40 meq ONETIME ONE Administration - Radiology Interpretation Free Text/Narrative:: CT scan of abdomen and pelvis shows no evidence of ureteral stone. There is left perirenal and periureteral stranding which is consistent with Friday this. There was some patchy groundglass pasties at the lung bases which are likely related to compressive changes/atelectasis. - Re-Assessments/Exams Free Text/Narrative Re-Assessment/Exam: 02/09/19 01:00: Patient's urine has packed field of white cells with some hematuria as well. She also has elevated CRP and diabetes that is not controlled. I am going to send her for CT of her abdomen and pelvis because of her left-sided abdominal pain and flank pain. 02/09/19 02:29: The CT scan of her abdomen and pelvis consistent with left sided pyelonephritis. There was no evidence of kidney stone at this time. She was treated with Rocephin 1 g IV. She is feeling much improved. Her blood pressure has been in the 120 systolic and her pulse is in the 70s and 80s. I will discharge the patient on Bactrim DS twice daily for 10 days. She is to increase her fluid intake. She is to take Tylenol for fever or pain. She is to follow-up with her primary provider. Departure - Departure Time of Disposition: 02:40 Disposition: Home, Self-Care 01 Condition: Good (Improved) Clinical Impression: Pyelonephritis, Dehydration Diabetes mellitus type 2, uncontrolled Qualifiers: Glycemic state: with hyperglycemia Qualified Code(s): E11.65 - Type 2 diabetes mellitus with hyperglycemia - Discharge Information Prescriptions: Sulfamethoxazole/Trimethoprim [Bactrim Ds Tablet] 1 each PO BID 10 Days #20 tablet Instructions: Dehydration, Adult, [id number], Pyelonephritis, Adult, Easy-to- Read Referrals: PCP,None [Primary Care Provider] - Forms: ED Department Discharge Additional Instructions: You appear to have a left sided kidney infection. Your diabetes is also not controlled. You were also somewhat dehydrated. Increase your fluid intake. Medication as prescribed (Bactrim DS). You may take Tylenol 1000 mg by mouth every 6 hours as needed for fever or pain. Follow-up with your primary provider. Back to the emergency department for unrelenting vomiting, inability to take liquids, trouble breathing or any other concerning sign or symptom. Sepsis Event Note - Focused Exam Vital Signs: Vital Signs Temp Pulse Resp BP Pulse Ox 02/09/19 02:17 36.8 C 90 18 124/65 99 02/09/19 00:32 36.9 C 88 16 93/45 L 94 L 02/08/19 23:10 36.8 C 105 H 16 111/62 98 Date Exam was Performed: 02/09/19 Time Exam was Performed: 02:28 - My Orders Last 24 Hours: My Active Orders 02/08/19 23:10 Blood Glucose Check, Bedside [RC] ONETIME 02/08/19 23:32 Sodium Chloride 0.9% [Saline Flush] 10 ml FLUSH ASDIRECTED PRN Peripheral IV Insertion Adult [OM.PC] Routine 02/09/19 00:33 CULTURE URINE [RM] Stat 02/09/19 01:06 Abdomen Pelvis wo Cont [CT] Stat 02/09/19 02:02 Accu Check [Blood Glucose Check, Bedside] [RC] ONETIME - Assessment/Plan Last 24 Hours: My Active Orders 02/08/19 23:10 Blood Glucose Check, Bedside [RC] ONETIME 02/08/19 23:32 Sodium Chloride 0.9% [Saline Flush] 10 ml FLUSH ASDIRECTED PRN Peripheral IV Insertion Adult [OM.PC] Routine 02/09/19 00:33 CULTURE URINE [RM] Stat 02/09/19 01:06 Abdomen Pelvis wo Cont [CT] Stat 02/09/19 02:02 Accu Check [Blood Glucose Check, Bedside] [RC] ONETIME
[2019-02-08] MEDS ORDERED: Ondansetron 4 MG Tab.DIS PO ONE (23:33)
[2019-02-08] MEDS ORDERED: Sodium Chloride 0.9% 1,000 ML IV ONE (23:33)
[2019-02-08] MEDS: Sodium Chloride 0.9% 10 ML Syringe FLUSH PRN (23:42)
[2019-02-09] MEDS ORDERED: cefTRIAXone 1 GM Vial IVPUSH ONE (02:00)
[2019-02-09] MEDS ORDERED: Potassium Chloride 20 MEQ Packet PO SCH (02:00)
[2019-02-09] MEDS ORDERED: Potassium Chloride 20 MEQ Packet PO ONE (02:03)
[2019-02-09] MEDS: Sodium Chloride 0.9% 10 ML Syringe FLUSH PRN (02:08)
[2019-02-09 02:18] VITALS: BP 124/65; PULSE 90
== END 2019-02-09 02:47 | disposition home or self-care (01) ==
LOC: FB.ED 22:54
DX: N12 Tubulo-interstitial nephritis, not specified as acute or chronic (principal); E86.0 Dehydration; E11.65 Type 2 diabetes mellitus with hyperglycemia; D50.9 Iron deficiency anemia, unspecified; G25.81 Restless legs syndrome; F17.200 Nicotine dependence, unspecified, uncomplicated; Z79.84 Long term (current) use of oral hypoglycemic drugs; Z79.899 Other long term (current) drug therapy
CPT/HCPCS: 36415; 74176; 80053; 81001; 81025; 82962; 85025; 86140; 87086; 87088; 87186; 87804; 87804-59; 99284; A9270-GY; J0696; J7030

== ENCOUNTER 2019-09-27 00:11 | Emergency (ER) | payer MEDICAID, OTHER ==
[2019-09-27] MEDS ORDERED: Cephalexin 500 MG Cap PO ONE (00:12)
[2019-09-27 00:26] VITALS: BP 111/57; PULSE 95
--- NOTE | 2019-09-27 00:47 | EDM.PDOC ---
ED HPI GENERAL MEDICAL PROBLEM - General Chief Complaint: ENT Problem Stated Complaint: swollen eye Time Seen by Provider: 09/27/19 00:25 Source of Information: Reports: Patient History Limitations: Reports: No Limitations - History of Present Illness INITIAL COMMENTS - FREE TEXT/NARRATIVE: pt comes in with c/o pain and swelling over the left eyebrow , no fever, drainage or any other associated sx or concerns. left eye area Pain Score (Numeric/FACES): 8 - Related Data Allergies Allergy/AdvReac Type Severity Reaction Status Date / Time amoxicillin [Amoxicillin] Allergy Hives Verified 02/08/19 23:05 Home Meds: Home Meds metFORMIN [Glucophage] 1,000 mg PO DAILY 09/19/17 [History] Acetaminophen [Tylenol] 650 mg PO Q4HR PRN 02/20/18 [History] Empagliflozin [Jardiance] 10 mg PO DAILY 02/20/18 [History] Ferrous Sulfate [Iron] 325 mg PO DAILY 02/20/18 [History] Levofloxacin [Levaquin] 500 mg PO DAILY #10 tablet 02/20/18 [Rx] Sulfamethoxazole/Trimethoprim [Bactrim Ds Tablet] 1 each PO BID 10 Days #20 tablet 02/09/19 [Rx] Past Medical History - Past Health History Medical/Surgical History: Denies Medical/Surgical History Respiratory History: Reports: Bronchitis, Recurrent Gastrointestinal History: Reports: Cholelithiasis 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, 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 Other Musculoskeletal History: restless legs Endocrine/Metabolic History: Reports: Diabetes, Type II, Obesity/BMI 30+ Hematologic History: Reports: Anemia, Blood Transfusion(s), Iron Deficiency Oncologic (Cancer) History: Reports: None - Infectious Disease History Infectious Disease History: Reports: Chicken Pox - Past Surgical History Head Surgeries/Procedures: Reports: None GI Surgical History: Reports: Cholecystectomy, Colonoscopy, EGD Female Surgical History: Reports: Section Other Female Surgeries/Procedures: [id number] Musculoskeletal Surgical History: Reports: Carpal Tunnel Other Musculoskeletal Surgeries/Procedures:: bilat Carpel tunnel surgery Social & Family History - Family History Family Medical History: Noncontributory - Tobacco Use Smoking Status *Q: Current Every Day Smoker Years of Tobacco use: 10 Packs/Tins Daily: 0.5 - Caffeine Use Caffeine Use: Reports: None - Recreational Drug Use Recreational Drug Use: No Other Recreational Drug Type: Denies - Living Situation & Occupation Occupation: Unemployed ED ROS GENERAL - Review of Systems Review Of Systems: See Below Constitutional: Reports: No Symptoms HEENT: Reports: No Symptoms Respiratory: Reports: No Symptoms Cardiovascular: Reports: No Symptoms GI/Abdominal: Reports: No Symptoms ED EXAM, GENERAL - Physical Exam Exam: See Below Exam Limited By: No Limitations General Appearance: Alert, No Apparent Distress Eye Exam: Bilateral Eye: Normal Inspection Nose: Normal Inspection Throat/Mouth: Normal Inspection, Normal Oropharynx Head: Normocephalic, Other (pt has erythema and induration/ about 1.5 cm in diameter over the left eyebrow, no palpable abscess or ulceration. ) Neck: Normal Inspection, Supple. No: Lymphadenopathy (R), Lymphadenopathy (L) Respiratory/Chest: No Respiratory Distress, Lungs Clear Cardiovascular: Normal Peripheral Pulses, Regular Rate, Rhythm Course - Vital Signs Text/Narrative:: pt has folliculitis/ cellulitis at left eyebrow, she is allergic to penicillin . Keflex was prescribed for 10 days, warm compresses and supportive mng were discussed, pt to follow on this issue PRN. Last Recorded V/S: Last Vital Signs Temp 36.9 C 09/27/19 00:14 Pulse 95 09/27/19 00:14 Resp 14 09/27/19 00:14 BP 111/57 L 09/27/19 00:14 Pulse Ox 100 09/27/19 00:14 Departure - Departure Time of Disposition: 00:46 Disposition: Home, Self-Care 01 Clinical Impression: Folliculitis - Discharge Information Referrals: Martita Mabry SUPERVIS[employer] ROAD ADMINISTRATOR [Primary Care Provider] - Sepsis Event Note (ED) - Evaluation Sepsis Screening Result: No Definite Risk - Focused Exam Vital Signs: Vital Signs Temp Pulse Resp BP Pulse Ox 09/27/19 00:14 36.9 C 95 14 111/57 L 100
== END 2019-09-27 00:55 | disposition home or self-care (01) ==
LOC: FB.ED 00:11
DX: L73.9 Follicular disorder, unspecified (principal); F17.210 Nicotine dependence, cigarettes, uncomplicated; E11.9 Type 2 diabetes mellitus without complications; E66.9 Obesity, unspecified; Z68.33 Body mass index [BMI] 33.0-33.9, adult; Z88.1 Allergy status to other antibiotic agents; Z79.899 Other long term (current) drug therapy; Z79.84 Long term (current) use of oral hypoglycemic drugs; Z88.0 Allergy status to penicillin
CPT/HCPCS: 99283; A9270-GY

== ENCOUNTER 2020-04-23 08:08 | Inpatient (IN) | payer MEDICAID ==
[2020-04-23] MEDS ORDERED: Ketorolac 30 MG/ML SDV IVPUSH ONE (09:43)
[2020-04-23] MEDS ORDERED: Sodium Chloride 0.9% 1,000 ML IV ONE ×2 (09:43→12:29)
[2020-04-23] MEDS ORDERED: cefTRIAXone 2 GM Vial IVPUSH ONE (09:43)
[2020-04-23] MEDS ORDERED: Iopamidol 755 Mg/ML 100 ML Bottle IV ONE (09:54)
--- NOTE | 2020-04-23 09:57 | EDM.PDOC ---
ED HPI GENERAL MEDICAL PROBLEM - General Chief Complaint: ENT Problem Stated Complaint: SORE THROAT Time Seen by Provider: 04/23/20 09:00 Source of Information: Reports: Patient History Limitations: Reports: No Limitations - History of Present Illness INITIAL COMMENTS - FREE TEXT/NARRATIVE: c/o ST x 4d inc'd pain yesterday, went to urgent care, strep neg, dx sinus problem and tx with Flonase pain worse today, took ibuprofen 200 mg x 2 at 6:30a that did not help pain is in her throat, neck is swollen today with pain in neck also and more to the left h/o peritonsillar abscess x 2, last time ~5y ago, pt not sure if she went to [place], the time previous was in the [facility] h/o DM, on Jardiance and metformin, saw PCP Martita Mabry 2w ago, A1C done, pt not sure of results, unable to swallow her pills this AM lives alone, not around sick people, not working had pyleo 16m ago, tx ceftriaxone in ED difficult to eat and drink says she has a hard time breathing, normal voice, no dyspnea, no drooling Treatments PERSONNEL CLERK: Reports: Other Medication(s) Other Treatments PERSONNEL CLERK: ibuprophen this AM Bilateral Throat Pain Score (Numeric/FACES): 8 - Related Data Allergies Allergy/AdvReac Type Severity Reaction Status Date / Time amoxicillin [Amoxicillin] Allergy Hives Verified 04/23/20 08:26 Home Meds: Home Meds metFORMIN [Glucophage] 1,000 mg PO BID 09/19/17 [History] Acetaminophen [Tylenol] 650 mg PO Q4HR PRN 02/20/18 [History] Empagliflozin [Jardiance] 10 mg PO DAILY 02/20/18 [History] Ferrous Sulfate [Iron] 325 mg PO DAILY 02/20/18 [History] Past Medical History - Past Health History Medical/Surgical History: Denies Medical/Surgical History HEENT History: Reports: Other (See Below) Other HEENT History: abccessed tosils Cardiovascular History: Reports: High Cholesterol Respiratory History: Reports: Bronchitis, Recurrent Gastrointestinal History: Reports: Cholelithiasis FIRE CONTROL ASSISTANT History: Reports: Other FIRE CONTROL ASSISTANT History: I, PARA I Other Musculoskeletal History: restless legs Endocrine/Metabolic History: Reports: Diabetes, Type II, Obesity/BMI 30+ Hematologic History: Reports: Anemia, Blood Transfusion(s), Iron Deficiency Oncologic (Cancer) History: Reports: None - Infectious Disease History Infectious Disease History: Reports: Chicken Pox - Past Surgical History Head Surgeries/Procedures: Reports: None GI Surgical History: Reports: Cholecystectomy, Colonoscopy, EGD Female Surgical History: Reports: Section Other Female Surgeries/Procedures: [id number] Musculoskeletal Surgical History: Reports: Carpal Tunnel Other Musculoskeletal Surgeries/Procedures:: bilat Carpel tunnel surgery Social & Family History - Family History Family Medical History: No Pertinent Family History - Tobacco Use Tobacco Use Status *Q: Current Every Day Tobacco User Years of Tobacco use: 15 Packs/Tins Daily: 0.5 - Caffeine Use Caffeine Use: Reports: Soda - Recreational Drug Use Recreational Drug Use: No - Living Situation & Occupation Occupation: Unemployed ED ROS ENT - Review of Systems Review Of Systems: See Below Constitutional: Reports: Malaise HEENT: Reports: Throat Pain Respiratory: Reports: No Symptoms Cardiovascular: Reports: No Symptoms. Denies: Chest Pain Endocrine: Reports: No Symptoms GI/Abdominal: Reports: No Symptoms : Reports: No Symptoms Musculoskeletal: Reports: No Symptoms Skin: Reports: No Symptoms Neurological: Reports: No Symptoms Psychiatric: Reports: No Symptoms Hematologic/Lymphatic: Reports: No Symptoms Immunologic: Reports: No Symptoms ED EXAM, ENT - Physical Exam Exam: See Below Exam Limited By: No Limitations General Appearance: Alert, WD/WN, Mild Distress, Other (sits and walks without difficulty) Ears: Normal External Exam, Normal Canal, Hearing Grossly Normal, Normal TMs Nose: Normal Inspection, No Blood Mouth/Throat: Normal Gums, Normal Lips, Other (no swell uvula, mild 1+ swell tonsils b/l, small amount exudate on R tonsil only, slight pink flush of both tonsils) Head: Atraumatic, Normocephalic Neck: Other (moderate swell in neck b/l, 1+ tender neck to palpation b/l, no discrete LNs, soft LNs appeared matted under mandible b/l without prominence on either side) Respiratory/Chest: No Respiratory Distress, Lungs Clear, Normal Breath Sounds, No Accessory Muscle Use, Chest Non-Tender Cardiovascular: Regular Rate, Rhythm, No Edema, No Murmur, Tachycardia GI/Abdominal: Soft, Non-Tender, No Distention Back: Normal Inspection, Full Range of Motion Extremities: Normal Inspection, Non-Tender, No Pedal Edema Neurological: Alert, Oriented, CN II-XII Intact, Normal Cognition, Normal Gait, No Motor/Sensory Deficits Psychiatric: Normal Affect, Normal Mood Skin: Warm, Dry, Intact, Normal Color, No Rash, Other (dec'd turgor ext x 4) Lymphatic: No Adenopathy Course - Vital Signs Last Recorded V/S: Last Vital Signs Temp 37.3 C 04/23/20 09:34 Pulse 107 H 04/23/20 09:34 Resp 20 04/23/20 09:34 BP 119/72 04/23/20 09:34 Pulse Ox 97 04/23/20 09:34 - Orders/Labs/Meds Orders: Active Orders 24 hr Category Date Time Status Admission Status [Patient Status] [ADT] Routine ADT 04/23/20 12:21 Ordered Telemetry Monitoring [Cardiac Monitoring] [RC] .As Care 04/23/20 12:22 Ordered Directed Soft Tissue Neck w Cont [CT] Stat Exams 04/23/20 09:45 Taken Labs: Laboratory Tests 04/23/20 04/23/20 04/23/20 Range/Units 08:46 08:46 08:46 WBC 13.2 H (3.0-10.3) x10-3/uL RBC 5.03 (3.60-5.20) x10(6)uL Hgb 10.1 L (11.4-15.5) g/dL Hct 33.9 L (34.2-48.2) % MCV 67.3 L (76.7-100.5) fL MCH 20.0 L (23.9-33.9) pg MCHC 29.7 L (31.9-34.8) g/dL RDW 26.7 H (12.3-16.5) % Plt Count 307 (151-488) x10(3)uL MPV 9.2 (7.1-12.4) fL Add Manual Diff Yes Neutrophils % (Manual) 84 H (46-82) % Band Neutrophils % 1 (0-6) % Lymphocytes % (Manual) 7 L (13-37) % Monocytes % (Manual) 6 (4-12) % Eosinophils % (Manual) 2 (0-5) % Anisocytosis Moderate H Microcytosis Few Sodium 138 (135-145) mmol/L Potassium 4.0 (3.5-5.3) mmol/L Chloride 101 D (100-110) mmol/L Carbon Dioxide 25 (21-32) mmol/L BUN 6 L (7-18) mg/dL Creatinine 0.7 (0.55-1.02) mg/dL Est Cr Clr Drug Dosing 96.07 mL/min Estimated GFR (MDRD) > 60 (>60) BUN/Creatinine Ratio 8.6 L (9-20) Glucose 332 H D (80-116) mg/dL Calcium 8.3 L (8.6-10.2) mg/dL C-Reactive Protein 23.3 H* (0.5-0.9) mg/dL Urine HCG, Qual (NEGATIVE) Monoscreen (NEGATIVE) SARS-CoV-2 RNA (PETER) (NEGATIVE) 04/23/20 04/23/20 04/23/20 Range/Units 08:46 09:54 09:55 WBC (3.0-10.3) x10-3/uL RBC (3.60-5.20) x10(6)uL Hgb (11.4-15.5) g/dL Hct (34.2-48.2) % MCV (76.7-100.5) fL MCH (23.9-33.9) pg MCHC (31.9-34.8) g/dL RDW (12.3-16.5) % Plt Count (151-488) x10(3)uL MPV (7.1-12.4) fL Add Manual Diff Neutrophils % (Manual) (46-82) % Band Neutrophils % (0-6) % Lymphocytes % (Manual) (13-37) % Monocytes % (Manual) (4-12) % Eosinophils % (Manual) (0-5) % Anisocytosis Microcytosis Sodium (135-145) mmol/L Potassium (3.5-5.3) mmol/L Chloride (100-110) mmol/L Carbon Dioxide (21-32) mmol/L BUN (7-18) mg/dL Creatinine (0.55-1.02) mg/dL Est Cr Clr Drug Dosing mL/min Estimated GFR (MDRD) (>60) BUN/Creatinine Ratio (9-20) Glucose (80-116) mg/dL Calcium (8.6-10.2) mg/dL C-Reactive Protein (0.5-0.9) mg/dL Urine HCG, Qual Negative (NEGATIVE) Monoscreen Negative (NEGATIVE) SARS-CoV-2 RNA (PETER) Negative (NEGATIVE) Meds: Medications Discontinued Medications Generic Name Dose Route Start Last Admin Trade Name Jael PRN Reason Stop Dose Admin Ceftriaxone Sodium 1 gm 04/23/20 09:43 04/23/20 11:26 Rocephin IVPUSH 04/23/20 09:44 1 gm ONETIME ONE Administration Sodium Chloride 1,000 mls @ 999 mls/hr 04/23/20 09:43 04/23/20 11:23 Normal Saline IV 04/23/20 10:43 999 mls/hr .BOLUS ONE Administration Iopamidol 100 ml 04/23/20 09:54 Isovue-370 (76%) IV 04/23/20 09:55 . DIRECTED ONE Ketorolac Tromethamine 30 mg 04/23/20 09:43 04/23/20 11:24 Toradol IVPUSH 04/23/20 09:44 30 mg ONETIME ONE Administration - Re-Assessments/Exams Free Text/Narrative Re-Assessment/Exam: 04/23/20 12:48 still tachy after one liter NS snoring on back asleep with PO 92% given airway compromise and hypoxia and inability to take PO and living alone, adm to obs recommended, pt concurs, accepted by Dr Thomas also d/w Dr Wyatt [facility] who agreed with medical management and s aid that someone from his office would contact pt tomorrow re f/u pt with 2 small areas on right of 4 mm and 7 mm of phelgmon vs pus c/w early peritonsillar abscess, nonsurgical d/w radiologist does have airway encroachment with STS of epiglottis, LNs and neck Departure - Departure Time of Disposition: 12:23 Disposition: Refer to Observation Condition: Fair Clinical Impression: Airway compromise, Neck swelling, Peritonsillar abscess, Moderate dehydration, Swallowing difficulty, Diabetes mellitus with hyperglycemia, Elevated WBC count, Left shift, Snoring, Fever, Tachycardia - Discharge Information *PRESCRIPTION DRUG MONITORING PROGRAM REVIEWED*: Not Applicable *COPY OF PRESCRIPTION DRUG MONITORING REPORT IN PATIENT CHRISTINE: Not Applicable Referrals: Raghavendra,Martita L, TAP GRINDER [Primary Care Provider] - Forms: ED Department Discharge Sepsis Event Note (ED) - Evaluation Sepsis Screening Result: Sepsis Risk - Focused Exam Vital Signs: Vital Signs Temp Pulse Resp BP Pulse Ox 04/23/20 09:34 37.3 C 107 H 20 119/72 97 04/23/20 08:10 36.8 C 115 H 22 H 123/68 98 - My Orders Last 24 Hours: My Active Orders 04/23/20 09:45 Soft Tissue Neck w Cont [CT] Stat 04/23/20 12:21 Admission Status [Patient Status] [ADT] Routine 04/23/20 12:22 Telemetry Monitoring [Cardiac Monitoring] [RC] .As Directed - Assessment/Plan Last 24 Hours: My Active Orders 04/23/20 09:45 Soft Tissue Neck w Cont [CT] Stat 04/23/20 12:21 Admission Status [Patient Status] [ADT] Routine 04/23/20 12:22 Telemetry Monitoring [Cardiac Monitoring] [RC] .As Directed
[2020-04-23] MEDS ORDERED: methylPREDNISolone Sodium Succinate 125 MG/2 ML SDV IVPUSH ONE (12:29)
[2020-04-23] MEDS ORDERED: metroNIDAZOLE/Normal Saline 500 MG in Premix Bag 1 BAG IV ONE (12:30)
[2020-04-23] MEDS ORDERED: Docusate Sodium 100 MG Cap PO PRN (14:29)
[2020-04-23] MEDS ORDERED: Magnesium Hydroxide 400 MG/5 ML Susp 30 ML Cup PO PRN (14:29)
[2020-04-23] MEDS ORDERED: Sodium Chloride 0.9% 1,000 ML IV SCH (14:45)
[2020-04-23] MEDS ORDERED: Morphine 2 MG/ML SYRINGE IVPUSH PRN (14:48)
[2020-04-23] MEDS ORDERED: Glucagon,Human Recombinant 1 MG Vial IM PRN ×2 (15:10→15:37)
[2020-04-23] MEDS ORDERED: 50% Dextrose in Water 50 ML Syringe IVPUSH PRN ×2 (15:10→15:37)
[2020-04-23] MEDS: Ketorolac 15 MG/ML SDV IVPUSH SCH ×2 (15:15→20:57)
[2020-04-23] MEDS ORDERED: Insulin Lispro Protamine/Lispro 75-25 100 Units/ML 3 ML KwikPen SUBCUT SCH (15:15)
[2020-04-23] MEDS: Clindamycin in 0.9 % Sod Chlor 600 MG in Premix Bag 1 BAG IV SCH ×4 (15:19→21:00)
--- NOTE | 2020-04-23 15:20 | PCM.HP.2 ---
H&P History of Present Illness - General Date of Service: 04/23/20 Admit Problem/Dx: Admission Diagnosis/Problem Admission Diagnosis/Problem Peritonsillar abscess Source of Information: Patient, Old Records, Provider History Limitations: Reports: No Limitations - History of Present Illness Initial Comments - Free Text/Narative: 39-year-old lady with past medical history significant for poorly controlled diabetes mellitus type 2 -A1c 12.4 on 03/16/2020, microcytic anemia -hemoglobin 10.0 and MCV 60.9 on 03/16/2020, obesity, and cigarette smoking came to the emergency department for evaluation of severe sore throat, difficulty swallowing and difficulty breathing. She states that the symptoms started 3 days ago but continued to increase in severity. She tried salt water gargle and ibuprofen at home. She was seen in the walk-in clinic yesterday and diagnosed with allergy symptoms and given Flonase, rapid strep was negative. She states that by last evening she had severe pain, fever, chest pressure/discomfort, and difficulty swallowing her own saliva. She tried taking ibuprofen with little or no relief. She stated that she does have a history of tonsillitis having been treated with antibiotics several times in the past, the last time was several years ago. She came to the emergency room for further evaluation. Onset of Symptoms: Reports: Gradual Symptom Onset Date: 04/19/20 Location: Reports: Neck Quality: Reports: Burning, Pressure, Throbbing Severity: Severe Improves with: Reports: None Worsens with: Reports: Eating Associated Symptoms: Reports: Chest Pain, Fever/Chills, Headaches, Loss of Appetite, Shortness of Breath Bilateral Throat Pain Score (Numeric/FACES): 8 - Related Data Allergies/Adverse Reactions: Allergies Allergy/AdvReac Type Severity Reaction Status Date / Time amoxicillin [Amoxicillin] Allergy Hives Verified 04/23/20 08:26 Home Medications: Home Meds metFORMIN [Glucophage] 1,000 mg PO BID 09/19/17 [History] Acetaminophen [Tylenol] 650 mg PO Q4HR PRN 02/20/18 [History] Empagliflozin [Jardiance] 10 mg PO DAILY 02/20/18 [History] Ferrous Sulfate [Iron] 325 mg PO DAILY 02/20/18 [History] Past Medical History - Past Health History Medical/Surgical History: Denies Medical/Surgical History HEENT History: Reports: Other (See Below) Other HEENT History: abccessed tosils Cardiovascular History: Reports: High Cholesterol Respiratory History: Reports: Bronchitis, Recurrent Gastrointestinal History: Reports: Cholelithiasis 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: Reports: Other OB/BYN History: I, PARA I Other Musculoskeletal History: restless legs Endocrine/Metabolic History: Reports: Diabetes, Type II, Obesity/BMI 30+ Hematologic History: Reports: Anemia, Blood Transfusion(s), Iron Deficiency Oncologic (Cancer) History: Reports: None - Infectious Disease History Infectious Disease History: Reports: Chicken Pox - Past Surgical History Head Surgeries/Procedures: Reports: None GI Surgical History: Reports: Cholecystectomy, Colonoscopy, EGD Female Surgical History: Reports: Section Other Female Surgeries/Procedures: [id number] Musculoskeletal Surgical History: Reports: Carpal Tunnel Other Musculoskeletal Surgeries/Procedures:: bilat Carpel tunnel surgery Social & Family History - Family History Family Medical History: No Pertinent Family History - Tobacco Use Tobacco Use Status *Q: Current Every Day Tobacco User Years of Tobacco use: 15 Packs/Tins Daily: 0.5 - Caffeine Use Caffeine Use: Reports: Soda - Recreational Drug Use Recreational Drug Use: No - Living Situation & Occupation Occupation: Unemployed H&P Review of Systems - Review of Systems: Review Of Systems: See Below General: Reports: Fever, Chills, Fatigue, Decreased Appetite HEENT: Reports: Dysphasia, Ear Pain, Headaches, Post Nasal Drip, Sinus Congestion, Sore Throat Pulmonary: Reports: Shortness of Breath, Pleuritic Chest Pain Cardiovascular: Reports: Chest Pain Gastrointestinal: Reports: No Symptoms Genitourinary: Reports: No Symptoms Musculoskeletal: Reports: No Symptoms Skin: Reports: No Symptoms Psychiatric: Reports: No Symptoms Neurological: Reports: Headache, Weakness Hematologic/Lymphatic: Reports: Anemia Immunologic: Reports: No Symptoms Exam - Exam Exam: See Below - Vital Signs Vital Signs: Last Vital Signs Temp 37.3 C 04/23/20 09:34 Pulse 99 04/23/20 12:30 Resp 20 04/23/20 12:30 BP 119/72 04/23/20 09:34 Pulse Ox 99 04/23/20 12:30 Weight: 97.069 kg - Exam Quality Assessment: DVT Prophylaxis General: Alert, Oriented, Cooperative, Mild Distress HEENT: EOMI, Mucosa Moist & [place], Other (Bilateral external auditory canals and tympanic membranes are free of edema, erythema, discharge, there is air-fluid level with clear fluid bilateral middle ears. 1+ tonsils bilateral, mild exudate right tonsil, mandibular lymph nodes are enlarged, right greater than left, tenderness to palpation over the left anterior superior neck) Neck: Lymphadenopathy, Other. No: Thyromegaly Lungs: Clear to Auscultation, Normal Respiratory Effort Cardiovascular: Regular Rate, Regular Rhythm, Other (Chest pain reproducible with palpation over the left precordial area) GI/Abdominal Exam: Normal Bowel Sounds, Soft, Non-Tender Back Exam: Normal Inspection. No: CVA Tenderness (R), CVA Tenderness (L), Paraspinal Tenderness, Vertebral Tenderness Extremities: Normal Inspection, Non-Tender, Pedal Edema Peripheral Pulses: 2+: Radial (L), Radial (R), Dorsalis Pedis (L), Dorsalis Pedis (R) Skin: Warm, Dry Neuro Extensive - Mental Status: Alert, Oriented x3, Normal Mood/Affect, Normal Cognition, Memory Intact Psychiatric: Alert, Normal Affect, Normal Mood - Patient Data Lab Results Last 24 hrs: Laboratory Results - last 24 hr 04/23/20 04/23/20 04/23/20 Range/Units 08:46 08:46 08:46 WBC 13.2 H (3.0-10.3) x10-3/uL RBC 5.03 (3.60-5.20) x10(6)uL Hgb 10.1 L (11.4-15.5) g/dL Hct 33.9 L (34.2-48.2) % MCV 67.3 L (76.7-100.5) fL MCH 20.0 L (23.9-33.9) pg MCHC 29.7 L (31.9-34.8) g/dL RDW 26.7 H (12.3-16.5) % Plt Count 307 (151-488) x10(3)uL MPV 9.2 (7.1-12.4) fL Add Manual Diff Yes Neutrophils % (Manual) 84 H (46-82) % Band Neutrophils % 1 (0-6) % Lymphocytes % (Manual) 7 L (13-37) % Monocytes % (Manual) 6 (4-12) % Eosinophils % (Manual) 2 (0-5) % Anisocytosis Moderate H Microcytosis Few Sodium Cancelled Potassium Cancelled Chloride Cancelled Carbon Dioxide Cancelled Anion Gap Cancelled BUN Cancelled Creatinine Cancelled Est Cr Clr Drug Dosing Cancelled Estimated GFR (MDRD) Cancelled BUN/Creatinine Ratio Cancelled Glucose Cancelled Calcium Cancelled Total Bilirubin (0.1-1.3) mg/dL AST (5-25) IU/L ALT (12-36) U/L Alkaline Phosphatase (56-112) IU/L C-Reactive Protein 23.3 H* (0.5-0.9) mg/dL Total Protein (6.0-8.0) g/dL Albumin (3.5-5.2) g/dL Globulin g/dL Albumin/Globulin Ratio Urine HCG, Qual (NEGATIVE) Monoscreen (NEGATIVE) SARS-CoV-2 RNA (PETER) (NEGATIVE) 04/23/20 04/23/20 04/23/20 Range/Units 08:46 08:46 09:54 WBC (3.0-10.3) x10-3/uL RBC (3.60-5.20) x10(6)uL Hgb (11.4-15.5) g/dL Hct (34.2-48.2) % MCV (76.7-100.5) fL MCH (23.9-33.9) pg MCHC (31.9-34.8) g/dL RDW (12.3-16.5) % Plt Count (151-488) x10(3)uL MPV (7.1-12.4) fL Add Manual Diff Neutrophils % (Manual) (46-82) % Band Neutrophils % (0-6) % Lymphocytes % (Manual) (13-37) % Monocytes % (Manual) (4-12) % Eosinophils % (Manual) (0-5) % Anisocytosis Microcytosis Sodium 138 Potassium 4.0 Chloride 101 D Carbon Dioxide 25 Anion Gap BUN 6 L Creatinine 0.7 Est Cr Clr Drug Dosing 96.07 Estimated GFR (MDRD) > 60 BUN/Creatinine Ratio 8.6 L Glucose 332 H D Calcium 8.3 L Total Bilirubin 0.5 (0.1-1.3) mg/dL AST 10 D (5-25) IU/L ALT 20 D (12-36) U/L Alkaline Phosphatase 99 (56-112) IU/L C-Reactive Protein (0.5-0.9) mg/dL Total Protein 7.5 (6.0-8.0) g/dL Albumin 2.9 L (3.5-5.2) g/dL Globulin 4.6 g/dL Albumin/Globulin Ratio 0.6 Urine HCG, Qual (NEGATIVE) Monoscreen Negative (NEGATIVE) SARS-CoV-2 RNA (PETER) Negative (NEGATIVE) 04/23/20 Range/Units 09:55 WBC (3.0-10.3) x10-3/uL RBC (3.60-5.20) x10(6)uL Hgb (11.4-15.5) g/dL Hct (34.2-48.2) % MCV (76.7-100.5) fL MCH (23.9-33.9) pg MCHC (31.9-34.8) g/dL RDW (12.3-16.5) % Plt Count (151-488) x10(3)uL MPV (7.1-12.4) fL Add Manual Diff Neutrophils % (Manual) (46-82) % Band Neutrophils % (0-6) % Lymphocytes % (Manual) (13-37) % Monocytes % (Manual) (4-12) % Eosinophils % (Manual) (0-5) % Anisocytosis Microcytosis Sodium Potassium Chloride Carbon Dioxide Anion Gap BUN Creatinine Est Cr Clr Drug Dosing Estimated GFR (MDRD) BUN/Creatinine Ratio Glucose Calcium Total Bilirubin (0.1-1.3) mg/dL AST (5-25) IU/L ALT (12-36) U/L Alkaline Phosphatase (56-112) IU/L C-Reactive Protein (0.5-0.9) mg/dL Total Protein (6.0-8.0) g/dL Albumin (3.5-5.2) g/dL Globulin g/dL Albumin/Globulin Ratio Urine HCG, Qual Negative (NEGATIVE) Monoscreen (NEGATIVE) SARS-CoV-2 RNA (PETER) (NEGATIVE) Result Diagrams: 04/23/20 08:46 04/23/20 08:46 Sepsis Event Note - Evaluation Sepsis Screening Result: Sepsis Risk - Focused Exam Vital Signs: Vital Signs Temp Pulse Resp BP Pulse Ox 04/23/20 12:30 99 20 99 04/23/20 11:30 102 H 18 96 04/23/20 09:34 37.3 C 107 H 20 119/72 97 04/23/20 08:10 36.8 C 115 H 22 H 123/68 98 - Problem List (1) Microcytic anemia SNOMED Code(s): 618604378 ICD Code: D50.9 - IRON DEFICIENCY ANEMIA, UNSPECIFIED Status: Chronic Current Visit: Yes (2) Cigarette smoker SNOMED Code(s): 29794589 ICD Code: F17.210 - NICOTINE DEPENDENCE, CIGARETTES, UNCOMPLICATED Status: Chronic Current Visit: Yes (3) Anemia due to unknown mechanism SNOMED Code(s): 82766546 ICD Code: D64.9 - ANEMIA, UNSPECIFIED Status: Chronic Current Visit: No Problem Details: Ottoniel remains anemic, and will follow up with PCP. (4) Obesity SNOMED Code(s): 656932376 ICD Code: E66.9 - OBESITY, UNSPECIFIED Status: Chronic Current Visit: No (5) Diabetes mellitus type 2, uncontrolled SNOMED Code(s): 617748157, 559695559 ICD Code: E11.65 - TYPE 2 DIABETES MELLITUS WITH HYPERGLYCEMIA Status: Chronic Current Visit: No Qualifiers: Glycemic state: with hyperglycemia Qualified Code(s): E11.65 - Type 2 diabetes mellitus with hyperglycemia (6) Neck swelling SNOMED Code(s): 714969245 ICD Code: R22.1 - LOCALIZED SWELLING, MASS AND LUMP, NECK Status: Acute Current Visit: Yes (7) Peritonsillar abscess SNOMED Code(s): 28416665 ICD Code: J36 - PERITONSILLAR ABSCESS Status: Acute Current Visit: Yes (8) Swallowing difficulty SNOMED Code(s): 50944291, 312207565 ICD Code: R13.10 - DYSPHAGIA, UNSPECIFIED Status: Acute Current Visit: Yes (9) Elevated WBC count SNOMED Code(s): 505261001, 876248223 ICD Code: D72.829 - ELEVATED WHITE BLOOD CELL COUNT, UNSPECIFIED Status: Acute Current Visit: Yes (10) Left shift SNOMED Code(s): 92764342 ICD Code: D72.89 - OTHER SPECIFIED DISORDERS OF WHITE BLOOD CELLS Status: Acute Current Visit: Yes (11) Tachycardia SNOMED Code(s): 5163390 ICD Code: R00.0 - TACHYCARDIA, UNSPECIFIED Status: Acute Current Visit: Yes Problem List Initiated/Reviewed/Updated: Yes Orders Last 24hrs: Active Orders 24 hr Category Date Time Status Admission Status [Patient Status] [ADT] Routine ADT 04/23/20 12:21 Active Patient Status [ADT] Routine ADT 04/23/20 12:11 Ordered Antiembolic Devices [RC] .Routine Care 04/23/20 14:31 Ordered Pulse Oximetry [RC] PRN Care 04/23/20 14:29 Ordered Telemetry Monitoring [Cardiac Monitoring] [RC] .As Care 04/23/20 12:22 Active Directed VTE/DVT Education [RC] Click to Edit Care 04/23/20 14:31 Ordered Vital Signs [RC] Q4H Care 04/23/20 14:29 Ordered Full Liquid Diet [DIET] Diet 04/23/20 Dinner Ordered Soft Tissue Neck w Cont [CT] Stat Exams 04/23/20 09:45 Taken BASIC METABOLIC PANEL,BMP [CHEM] AM Lab 04/24/20 05:11 Ordered CBC WITH AUTO DIFF [HEME] AM Lab 04/24/20 05:11 Ordered IRON AND TIBC Routine Lab 04/23/20 14:49 Ordered Clindamycin in 0.9 % Sod Chlor [Cleocin in NS 600 MG/50 Med 04/23/20 15:00 Ordered ML] 600 mg Premix Bag 1 bag IV Q6H Dextrose 50% in Water Med 04/23/20 15:10 Ordered 50 ml IVPUSH ASDIRECTED PRN Docusate Sodium [Colace] Med 04/23/20 14:29 Ordered 100 mg PO DAILY PRN Enoxaparin [Lovenox] Med 04/23/20 14:30 Ordered 40 mg SUBCUT Q24H Glucagon,Human Recombinant [GlucaGen] Med 04/23/20 15:10 Ordered 1 mg IM ASDIRECTED PRN Insulin Lispro Prot/Lispro [HumaLOG Mix 75-25] Med 04/23/20 15:15 Ordered See Protocol SUBCUT ASDIRECTED Ketorolac [Toradol] Med 04/23/20 14:45 Ordered 15 mg IVPUSH Q6H Magnesium Hydroxide [Milk of Magnesia] Med 04/23/20 14:29 Ordered 30 ml PO BID PRN Morphine Med 04/23/20 14:48 Ordered 2 mg IVPUSH Q4H PRN Pantoprazole [ProTONIX IV] Med 04/24/20 09:00 Ordered 40 mg IVPUSH DAILY Sodium Chloride 0.9% @ 75 MLS/HR(1000ml) Med 04/23/20 14:45 Ordered Sodium Chloride 0.9% [Normal Saline] 1,000 ml IV ASDIRECTED Sodium Chloride 0.9% [Normal Saline] 1,000 ml Med 04/23/20 12:29 Active IV .BOLUS methylPREDNISolone Sod Succ [SOLU-MedroL] Med 04/24/20 09:00 Ordered 60 mg IV DAILY DVT/VTE Prophylaxis Reflex [OM.PC] Per Unit Routine Oth 04/23/20 14:29 Ordered Resuscitation Status Routine Resus Stat 04/23/20 14:29 Ordered Medication Orders Dextrose/Water (Dextrose 50% In Water) 50 ml IVPUSH ASDIRECTED PRN PRN Reason: Hypoglycemia Docusate Sodium (Colace) 100 mg PO DAILY PRN PRN Reason: Constipation Enoxaparin Sodium (Lovenox) 40 mg SUBCUT Q24H [facility] Glucagon (Glucagen) 1 mg IM ASDIRECTED PRN PRN Reason: Hypoglycemia Sodium Chloride (Normal Saline) 1,000 mls @ 125 mls/hr IV .BOLUS ONE Stop: 04/23/20 20:28 Last Admin: 04/23/20 12:34 Dose: 125 mls/hr Documented by: MISTI Clindamycin/Sodium Chloride (600 mg/ Premix) 50 mls @ 150 mls/hr IV Q6H [facility] Sodium Chloride (Normal Saline) 1,000 mls @ 75 mls/hr IV ASDIRECTED [facility] Insulin Lispro Protam/Lispro Human (Humalog Mix 75-25) 0 unit SUBCUT ASDIRECTED [facility]; Protocol Ketorolac Tromethamine (Toradol) 15 mg IVPUSH Q6H [facility] Stop: 04/24/20 23:59 Magnesium Hydroxide (Milk Of Magnesia) 30 ml PO BID PRN PRN Reason: Constipation Methylprednisolone Sodium Succinate (Solu-Medrol) 60 mg IV DAILY [facility] Stop: 04/25/20 23:59 Morphine Sulfate (Morphine) 2 mg IVPUSH Q4H PRN PRN Reason: Pain (severe 7-10) Pantoprazole Sodium (Protonix Iv) 40 mg IVPUSH DAILY [facility] Assessment/Plan Comment:: Patient has been admitted to observation for parenteral antibiotics. Patient was given 1 g ceftriaxone in the emergency department, she was also given 1 dose of 500 mg IV Flagyl. Start clindamycin, 600 mg IV, every 6 hours. Solu-Medrol due to dysphagia and difficulty breathing secondary to neck swelling. Pain control with scheduled [place] 30 mg every 6 hours, morphine 2 mg IV every 4 ho urs for severe pain only, and Tylenol PRN - may need to be crushed to be given. Full liquid diet. Patient's chest pain is reproducible with palpation. Sliding scale insulin and restart metformin, hold Jardiance. Lovenox for DVT prophylaxis, Protonix for GI prophylaxis. Iron studies for severe microcytic anemia. Note that the patient states that this is a chronic problem but she does not know if she has ever been diagnosed with thalassemia.
[2020-04-23] MEDS: Enoxaparin 40 MG/0.4 ML Syringe SUBCUT SCH (15:21)
[2020-04-23] MEDS: Insulin Lispro 100 Unit/ML 3 ML KwikPen SUBCUT SCH (17:58)
[2020-04-23] MEDS ORDERED: metFORMIN 500 MG Tab PO SCH (18:00)
[2020-04-23] MEDS ORDERED: Insulin Lispro 100 Unit/ML 3 ML KwikPen SUBCUT ONE (18:02)
[2020-04-24] MEDS ORDERED: Ketorolac 30 MG/ML SDV ONE (01:12)
[2020-04-24] MEDS: Clindamycin in 0.9 % Sod Chlor 600 MG in Premix Bag 1 BAG IV SCH ×8 (02:56→20:37)
[2020-04-24] MEDS: Ketorolac 15 MG/ML SDV IVPUSH SCH (02:56)
[2020-04-24] MEDS: metFORMIN 1,000 MG Tab PO SCH ×2 (08:13→18:40)
[2020-04-24] MEDS: Ferrous Sulfate 325 MG Tab PO SCH (08:14)
[2020-04-24] MEDS: Pantoprazole 40 MG Vial IVPUSH SCH (08:14)
[2020-04-24] MEDS: Insulin Lispro 100 Unit/ML 3 ML KwikPen SUBCUT SCH ×3 (08:24→18:41)
[2020-04-24] MEDS ORDERED: Ketorolac 30 MG/ML SDV IVPUSH SCH (08:45)
[2020-04-24] MEDS ORDERED: methylPREDNISolone Sodium Succinate 125 MG/2 ML SDV IV SCH (09:00)
[2020-04-24] MEDS ORDERED: Insulin Glargine,Human Rec. Analog 100 Units/ML 3 ML Pen SUBCUT ONE (09:10)
[2020-04-24] MEDS: Insulin Glargine,Human Rec. Analog 100 Units/ML 3 ML Pen SUBCUT SCH (09:11)
--- NOTE | 2020-04-24 10:17 | PCM.PN ---
- General Info Date of Service: 04/24/20 Admission Dx/Problem (Free Text): Admission Diagnosis/Problem Admission Diagnosis/Problem Peritonsillar abscess Subjective Update: Patient states that she feels much better today and is not having any difficulty swallowing. She denies fever, nausea but continues to complain of sore throat and a sensation of mild swelling, greatly improved from yesterday. No complaints of shortness of breath or chest pain. She asked for her diet to be advanced. Functional Status: Reports: Pain Controlled, Tolerating Diet, Ambulating, Urinating, New Symptoms - Review of Systems General: Reports: No Symptoms HEENT: Reports: Sore Throat, Other (Sensation of tightness in the throat without dysphagia or difficulty breathing) Cardiovascular: Reports: No Symptoms Gastrointestinal: Reports: No Symptoms Genitourinary: Reports: No Symptoms Musculoskeletal: Reports: No Symptoms Skin: Reports: No Symptoms Neurological: Reports: No Symptoms Psychiatric: Reports: No Symptoms - Patient Data Vitals - Most Recent: Last Vital Signs Temp 36.6 C 04/24/20 07:35 Pulse 93 04/24/20 07:35 Resp 20 04/24/20 07:35 BP 113/71 04/24/20 07:35 Pulse Ox 96 04/24/20 07:35 Weight - Most Recent: 97.069 kg I&O - Last 24 Hours: Intake & Output 04/23/20 04/24/20 04/24/20 22:59 06:59 14:59 Intake Total 2555 616 Balance 2555 616 Lab Results Last 24 Hours: Laboratory Results - last 24 hr 04/23/20 04/23/20 04/23/20 Range/Units 08:46 08:46 09:54 WBC (3.0-10.3) x10-3/uL RBC (3.60-5.20) x10(6)uL Hgb (11.4-15.5) g/dL Hct (34.2-48.2) % MCV (76.7-100.5) fL MCH (23.9-33.9) pg MCHC (31.9-34.8) g/dL RDW (12.3-16.5) % Plt Count (151-488) x10(3)uL MPV (7.1-12.4) fL Add Manual Diff Neutrophils % (Manual) (46-82) % Band Neutrophils % (0-6) % Lymphocytes % (Manual) (13-37) % Monocytes % (Manual) (4-12) % Sodium Cancelled 138 Potassium Cancelled 4.0 Chloride Cancelled 101 D Carbon Dioxide Cancelled 25 Anion Gap Cancelled BUN Cancelled 6 L Creatinine Cancelled 0.7 Est Cr Clr Drug Dosing Cancelled 96.07 Estimated GFR (MDRD) Cancelled > 60 BUN/Creatinine Ratio Cancelled 8.6 L Glucose Cancelled 332 H D POC Glucose (74-100) mg/dL Calcium Cancelled 8.3 L Total Bilirubin 0.5 (0.1-1.3) mg/dL AST 10 D (5-25) IU/L ALT 20 D (12-36) U/L Alkaline Phosphatase 99 (56-112) IU/L Total Protein 7.5 (6.0-8.0) g/dL Albumin 2.9 L (3.5-5.2) g/dL Globulin 4.6 g/dL Albumin/Globulin Ratio 0.6 Urine HCG, Qual (NEGATIVE) SARS-CoV-2 RNA (PETER) Negative (NEGATIVE) 04/23/20 04/23/20 04/24/20 Range/Units 09:55 17:50 06:20 WBC 13.9 H (3.0-10.3) x10-3/uL RBC 4.77 (3.60-5.20) x10(6)uL Hgb 9.7 L (11.4-15.5) g/dL Hct 32.1 L (34.2-48.2) % MCV 67.3 L (76.7-100.5) fL MCH 20.4 L (23.9-33.9) pg MCHC 30.3 L (31.9-34.8) g/dL RDW 26.8 H (12.3-16.5) % Plt Count 339 (151-488) x10(3)uL MPV 9.1 (7.1-12.4) fL Add Manual Diff Yes Neutrophils % (Manual) 87 H (46-82) % Band Neutrophils % 3 (0-6) % Lymphocytes % (Manual) 8 L (13-37) % Monocytes % (Manual) 2 L (4-12) % Sodium Potassium Chloride Carbon Dioxide Anion Gap BUN Creatinine Est Cr Clr Drug Dosing Estimated GFR (MDRD) BUN/Creatinine Ratio Glucose POC Glucose 399 H (74-100) mg/dL Calcium Total Bilirubin (0.1-1.3) mg/dL AST (5-25) IU/L ALT (12-36) U/L Alkaline Phosphatase (56-112) IU/L Total Protein (6.0-8.0) g/dL Albumin (3.5-5.2) g/dL Globulin g/dL Albumin/Globulin Ratio Urine HCG, Qual Negative (NEGATIVE) SARS-CoV-2 RNA (PETER) (NEGATIVE) 04/24/20 Range/Units 06:20 WBC (3.0-10.3) x10-3/uL RBC (3.60-5.20) x10(6)uL Hgb (11.4-15.5) g/dL Hct (34.2-48.2) % MCV (76.7-100.5) fL MCH (23.9-33.9) pg MCHC (31.9-34.8) g/dL RDW (12.3-16.5) % Plt Count (151-488) x10(3)uL MPV (7.1-12.4) fL Add Manual Diff Neutrophils % (Manual) (46-82) % Band Neutrophils % (0-6) % Lymphocytes % (Manual) (13-37) % Monocytes % (Manual) (4-12) % Sodium 137 Potassium 4.2 Chloride 103 Carbon Dioxide 24 Anion Gap BUN 12 Creatinine 0.7 Est Cr Clr Drug Dosing 94.10 Estimated GFR (MDRD) > 60 BUN/Creatinine Ratio 17.1 Glucose 329 H POC Glucose (74-100) mg/dL Calcium 7.8 L Total Bilirubin (0.1-1.3) mg/dL AST (5-25) IU/L ALT (12-36) U/L Alkaline Phosphatase (56-112) IU/L Total Protein (6.0-8.0) g/dL Albumin (3.5-5.2) g/dL Globulin g/dL Albumin/Globulin Ratio Urine HCG, Qual (NEGATIVE) SARS-CoV-2 RNA (PETER) (NEGATIVE) Med Orders - Current: Current Medications Acetaminophen (Tylenol) 650 mg PO Q4H PRN PRN Reason: Pain (moderate 4-6) Dextrose/Water (Dextrose 50% In Water) 50 ml IVPUSH ASDIRECTED PRN PRN Reason: Hypoglycemia Docusate Sodium (Colace) 100 mg PO DAILY PRN PRN Reason: Constipation Enoxaparin Sodium (Lovenox) 40 mg SUBCUT Q24H REPLACED BY [facility] Last Admin: 04/23/20 15:21 Dose: 40 mg Documented by: Ferrous Sulfate (Ferrous Sulfate) 325 mg PO DAILY REPLACED BY [facility] Last Admin: 04/24/20 08:14 Dose: 325 mg Documented by: Glucagon (Glucagen) 1 mg IM ASDIRECTED PRN PRN Reason: Hypoglycemia Clindamycin/Sodium Chloride (600 mg/ Premix) 50 mls @ 150 mls/hr IV Q6H REPLACED BY [facility] Last Admin: 04/24/20 09:03 Dose: 150 mls/hr Documented by: Sodium Chloride (Normal Saline) 1,000 mls @ 75 mls/hr IV ASDIRECTED REPLACED BY [facility] Last Admin: 04/23/20 22:25 Dose: 75 mls/hr Documented by: Insulin Glargine (Lantus Solostar) 10 units SUBCUT DAILY REPLACED BY [facility] Last Admin: 04/24/20 09:11 Dose: 10 units Documented by: Insulin Human Lispro (Humalog) 0 unit SUBCUT TIDMEALS REPLACED BY [facility]; Protocol Last Admin: 04/24/20 08:24 Dose: 8 units Documented by: Ketorolac Tromethamine (Toradol) 15 mg IVPUSH Q6H PRN PRN Reason: Pain (moderate 4-6) Stop: 04/29/20 10:04 Magnesium Hydroxide (Milk Of Magnesia) 30 ml PO BID PRN PRN Reason: Constipation Metformin HCl (Glucophage) 1,000 mg PO BIDMEALS REPLACED BY [facility] Last Admin: 04/24/20 08:13 Dose: 1,000 mg Documented by: Morphine Sulfate (Morphine) 2 mg IVPUSH Q4H PRN PRN Reason: Pain (severe 7-10) Pantoprazole Sodium (Protonix Iv) 40 mg IVPUSH DAILY REPLACED BY [facility] Last Admin: 04/24/20 08:14 Dose: 40 mg Documented by: Discontinued Medications Ceftriaxone Sodium (Rocephin) 1 gm IVPUSH ONETIME ONE Stop: 04/23/20 09:44 Last Admin: 04/23/20 11:26 Dose: 1 gm Documented by: Dextrose/Water (Dextrose 50% In Water) 50 ml IVPUSH ASDIRECTED PRN PRN Reason: Hypoglycemia Glucagon (Glucagen) 1 mg IM ASDIRECTED PRN PRN Reason: Hypoglycemia Sodium Chloride (Normal Saline) 1,000 mls @ 999 mls/hr IV .BOLUS ONE Stop: 04/23/20 10:43 Last Admin: 04/23/20 11:23 Dose: 999 mls/hr Documented by: Sodium Chloride (Normal Saline) 1,000 mls @ 125 mls/hr IV .BOLUS ONE Stop: 04/23/20 20:28 Last Admin: 04/23/20 12:34 Dose: 125 mls/hr Documented by: Metronidazole 500 mg/ Premix 100 mls @ 100 mls/hr IV ONETIME ONE Stop: 04/23/20 13:29 Last Admin: 04/23/20 12:37 Dose: 100 mls/hr Documented by: Insulin Lispro Protam/Lispro Human (Humalog Mix 75-25) 0 unit SUBCUT ASDIRECTED REPLACED BY [facility]; Protocol Iopamidol (Isovue-370 (76%)) 100 ml IV . DIRECTED ONE Stop: 04/23/20 09:55 Last Admin: 04/23/20 09:45 Dose: 100 ml Documented by: Ketorolac Tromethamine (Toradol) 30 mg IVPUSH ONETIME ONE Stop: 04/23/20 09:44 Last Admin: 04/23/20 11:24 Dose: 30 mg Documented by: Ketorolac Tromethamine (Toradol) 15 mg IVPUSH Q6H REPLACED BY [facility] Stop: 04/24/20 23:59 Last Admin: 04/24/20 02:56 Dose: 15 mg Documented by: Ketorolac Tromethamine (Toradol) Confirm Administered Dose 30 mg .ROUTE .STK-MED ONE Stop: 04/24/20 01:13 Last Admin: 04/24/20 02:54 Dose: Not Given Documented by: Ketorolac Tromethamine (Toradol) 15 mg IVPUSH Q6H REPLACED BY [facility] Stop: 04/24/20 23:59 Last Admin: 04/24/20 08:12 Dose: 15 mg Documented by: Metformin HCl (Glucophage) 1,000 mg PO BIDMEALS REPLACED BY [facility] Last Admin: 04/23/20 17:47 Dose: 1,000 mg Documented by: Methylprednisolone Sodium Succinate (Solu-Medrol) 125 mg IVPUSH ONETIME ONE Stop: 04/23/20 12:30 Last Admin: 04/23/20 12:37 Dose: 125 mg Documented by: Methylprednisolone Sodium Succinate (Solu-Medrol) 60 mg IV DAILY OCTAVIO Stop: 04/25/20 23:59 Last Admin: 04/24/20 08:14 Dose: 60 mg Documented by: - Exam Quality Assessment: Supplemental Oxygen, DVT Prophylaxis General: Alert, Oriented, Cooperative, No Acute Distress HEENT: EOMI, Mucous Membr. Moist/Estelle (Tonsils continue to be slightly enlarged, right greater than left with mild erythema) Neck: Supple, Lymphadenopathy (Tenderness to palpation left greater than right, anterior superior cervical lymph nodes) Lungs: Clear to Auscultation, Normal Respiratory Effort Cardiovascular: Regular Rate, Regular Rhythm GI/Abdominal Exam: Normal Bowel Sounds, Non-Tender Peripheral Pulses: 2+: Radial (L), Radial (R), Dorsalis Pedis (L), Dorsalis Pedis (R) Skin: Warm, Dry Psy/Mental Status: Alert, Normal Affect, Normal Mood - Patient Data Lab Results Last 24 hrs: Laboratory Results - last 24 hr 04/23/20 04/23/20 04/23/20 Range/Units 08:46 08:46 09:54 WBC (3.0-10.3) x10-3/uL RBC (3.60-5.20) x10(6)uL Hgb (11.4-15.5) g/dL Hct (34.2-48.2) % MCV (76.7-100.5) fL MCH (23.9-33.9) pg MCHC (31.9-34.8) g/dL RDW (12.3-16.5) % Plt Count (151-488) x10(3)uL MPV (7.1-12.4) fL Add Manual Diff Neutrophils % (Manual) (46-82) % Band Neutrophils % (0-6) % Lymphocytes % (Manual) (13-37) % Monocytes % (Manual) (4-12) % Sodium Cancelled 138 Potassium Cancelled 4.0 Chloride Cancelled 101 D Carbon Dioxide Cancelled 25 Anion Gap Cancelled BUN Cancelled 6 L Creatinine Cancelled 0.7 Est Cr Clr Drug Dosing Cancelled 96.07 Estimated GFR (MDRD) Cancelled > 60 BUN/Creatinine Ratio Cancelled 8.6 L Glucose Cancelled 332 H D POC Glucose (74-100) mg/dL Calcium Cancelled 8.3 L Total Bilirubin 0.5 (0.1-1.3) mg/dL AST 10 D (5-25) IU/L ALT 20 D (12-36) U/L Alkaline Phosphatase 99 (56-112) IU/L Total Protein 7.5 (6.0-8.0) g/dL Albumin 2.9 L (3.5-5.2) g/dL Globulin 4.6 g/dL Albumin/Globulin Ratio 0.6 Urine HCG, Qual (NEGATIVE) SARS-CoV-2 RNA (PETER) Negative (NEGATIVE) 04/23/20 04/23/20 04/24/20 Range/Units 09:55 17:50 06:20 WBC 13.9 H (3.0-10.3) x10-3/uL RBC 4.77 (3.60-5.20) x10(6)uL Hgb 9.7 L (11.4-15.5) g/dL Hct 32.1 L (34.2-48.2) % MCV 67.3 L (76.7-100.5) fL MCH 20.4 L (23.9-33.9) pg MCHC 30.3 L (31.9-34.8) g/dL RDW 26.8 H (12.3-16.5) % Plt Count 339 (151-488) x10(3)uL MPV 9.1 (7.1-12.4) fL Add Manual Diff Yes Neutrophils % (Manual) 87 H (46-82) % Band Neutrophils % 3 (0-6) % Lymphocytes % (Manual) 8 L (13-37) % Monocytes % (Manual) 2 L (4-12) % Sodium Potassium Chloride Carbon Dioxide Anion Gap BUN Creatinine Est Cr Clr Drug Dosing Estimated GFR (MDRD) BUN/Creatinine Ratio Glucose POC Glucose 399 H (74-100) mg/dL Calcium Total Bilirubin (0.1-1.3) mg/dL AST (5-25) IU/L ALT (12-36) U/L Alkaline Phosphatase (56-112) IU/L Total Protein (6.0-8.0) g/dL Albumin (3.5-5.2) g/dL Globulin g/dL Albumin/Globulin Ratio Urine HCG, Qual Negative (NEGATIVE) SARS-CoV-2 RNA (PETER) (NEGATIVE) 04/24/20 Range/Units 06:20 WBC (3.0-10.3) x10-3/uL RBC (3.60-5.20) x10(6)uL Hgb (11.4-15.5) g/dL Hct (34.2-48.2) % MCV (76.7-100.5) fL MCH (23.9-33.9) pg MCHC (31.9-34.8) g/dL RDW (12.3-16.5) % Plt Count (151-488) x10(3)uL MPV (7.1-12.4) fL Add Manual Diff Neutrophils % (Manual) (46-82) % Band Neutrophils % (0-6) % Lymphocytes % (Manual) (13-37) % Monocytes % (Manual) (4-12) % Sodium 137 Potassium 4.2 Chloride 103 Carbon Dioxide 24 Anion Gap BUN 12 Creatinine 0.7 Est Cr Clr Drug Dosing 94.10 Estimated GFR (MDRD) > 60 BUN/Creatinine Ratio 17.1 Glucose 329 H POC Glucose (74-100) mg/dL Calcium 7.8 L Total Bilirubin (0.1-1.3) mg/dL AST (5-25) IU/L ALT (12-36) U/L Alkaline Phosphatase (56-112) IU/L Total Protein (6.0-8.0) g/dL Albumin (3.5-5.2) g/dL Globulin g/dL Albumin/Globulin Ratio Urine HCG, Qual (NEGATIVE) SARS-CoV-2 RNA (PETER) (NEGATIVE) Result Diagrams: 04/24/20 06:20 04/24/20 06:20 Sepsis Event Note - Evaluation Sepsis Screening Result: Sepsis Risk - Focused Exam Vital Signs: Vital Signs Temp Pulse Resp BP BP Pulse Ox 04/24/20 07:35 36.6 C 93 20 113/71 96 04/24/20 03:59 36.6 C 97 16 104/63 97 04/24/20 00:00 84 16 97 - Problem List & Annotations (1) Microcytic anemia SNOMED Code(s): 255551264 Code(s): D50.9 - IRON DEFICIENCY ANEMIA, UNSPECIFIED Status: Chronic Current Visit: Yes (2) Cigarette smoker SNOMED Code(s): 37743972 Code(s): F17.210 - NICOTINE DEPENDENCE, CIGARETTES, UNCOMPLICATED Status: Chronic Current Visit: Yes (3) Anemia due to unknown mechanism SNOMED Code(s): 70823340 Code(s): D64.9 - ANEMIA, UNSPECIFIED Status: Chronic Current Visit: No Annotation/Comment:: Ottoniel remains anemic, and will follow up with PCP. (4) Obesity SNOMED Code(s): 076574292 Code(s): E66.9 - OBESITY, UNSPECIFIED Status: Chronic Current Visit: No (5) Diabetes mellitus type 2, uncontrolled SNOMED Code(s): 710563207, 338275400 Code(s): E11.65 - TYPE 2 DIABETES MELLITUS WITH HYPERGLYCEMIA Status: Chronic Current Visit: No Qualifiers: Glycemic state: with hyperglycemia Qualified Code(s): E11.65 - Type 2 diabetes mellitus with hyperglycemia (6) Neck swelling SNOMED Code(s): 384421199 Code(s): R22.1 - LOCALIZED SWELLING, MASS AND LUMP, NECK Status: Acute Current Visit: Yes (7) Peritonsillar abscess SNOMED Code(s): 00535432 Code(s): J36 - PERITONSILLAR ABSCESS Status: Acute Current Visit: Yes (8) Swallowing difficulty SNOMED Code(s): 70952561, 923487396 Code(s): R13.10 - DYSPHAGIA, UNSPECIFIED Status: Acute Current Visit: Yes (9) Elevated WBC count SNOMED Code(s): 384603314, 841340683 Code(s): D72.829 - ELEVATED WHITE BLOOD CELL COUNT, UNSPECIFIED Status: Acute Current Visit: Yes (10) Left shift SNOMED Code(s): 07112842 Code(s): D72.89 - OTHER SPECIFIED DISORDERS OF WHITE BLOOD CELLS Status: Acute Current Visit: Yes (11) Tachycardia SNOMED Code(s): 3329843 Code(s): R00.0 - TACHYCARDIA, UNSPECIFIED Status: Acute Current Visit: Yes - Problem List Review Problem List Initiated/Reviewed/Updated: Yes - My Orders Last 24 Hours: My Active Orders 04/23/20 12:11 Patient Status [ADT] Routine 04/23/20 14:29 Pulse Oximetry [RC] PRN Vital Signs [RC] 08,12,16,20,00,04 Docusate Sodium [Colace] 100 mg PO DAILY PRN Magnesium Hydroxide [Milk of Magnesia] 30 ml PO BID PRN DVT/VTE Prophylaxis Reflex [OM.PC] Per Unit Routine Resuscitation Status Routine 04/23/20 14:30 Enoxaparin [Lovenox] 40 mg SUBCUT Q24H 04/23/20 14:31 Antiembolic Devices [RC] .Routine VTE/DVT Education [RC] Click to Edit 04/23/20 14:45 Sodium Chloride 0.9% [Normal Saline] 1,000 ml IV ASDIRECTED 04/23/20 14:48 Morphine 2 mg IVPUSH Q4H PRN 04/23/20 15:00 Clindamycin in 0.9 % Sod Chlor [Cleocin in NS 600 MG/50 ML] 600 mg Premix Bag 1 bag IV Q6H 04/23/20 15:10 Dextrose 50% in Water 50 ml IVPUSH ASDIRECTED PRN Glucagon,Human Recombinant [GlucaGen] 1 mg IM ASDIRECTED PRN 04/23/20 15:33 Acetaminophen [TylenoL] 650 mg PO Q4H PRN 04/23/20 16:00 Oxygen Therapy Adult [Oxygen Therapy] [RC] ASDIRECTED 04/23/20 18:00 Accu Check [Blood Glucose Check, Bedside] [RC] 07,11,17 Insulin Lispro [HumaLOG] See Protocol SUBCUT TIDMEALS 04/24/20 Breakfast Consistent Carbohydrate Diet [DIET] 04/24/20 08:00 metFORMIN [Glucophage] 1,000 mg PO BIDMEALS 04/24/20 09:00 Ferrous Sulfate 325 mg PO DAILY Insulin Glarg,Human.Rec.Analog [LantUS Solostar] 10 units SUBCUT DAILY Pantoprazole [ProTONIX IV] 40 mg IVPUSH DAILY 04/24/20 09:24 Head Neck Soft Tissue Bi [US] Routine 04/24/20 10:04 Ketorolac [Toradol] 15 mg IVPUSH Q6H PRN - Plan Plan:: Patient has been admitted to observation for parenteral antibiotics. Patient was given 1 g ceftriaxone in the emergency department, she was also given 1 dose of 500 mg IV Flagyl. Start clindamycin, 600 mg IV, every 6 hours. Solu-Medrol due to dysphagia and difficulty breathing secondary to neck swelling, stop after dose given in the a.m. of 04/24/2020. Pain control with PRN [place] 30 mg every 6 hours, morphine 2 mg IV every 4 hours for severe pain only, and Tylenol PRN. Diet advanced to consistent carbohydrate diet. Sliding scale insulin with Accu- Cheks and restart metformin, hold Jardiance. Start Lantus, 10 units daily. Lovenox for DVT prophylaxis, Protonix for GI prophylaxis. Ultrasound, soft tissue neck, to rule out abscess. Patient discharge likely tomorrow a.m. Finish course of clindamycin, total of 10 days. Continue with Lantus and follow-up with primary care physician for evaluation of peripharyngeal infection, diabetes mellitus, and microcytic anemia.
--- NOTE | 2020-04-24 10:49 | US ---
INDICATION: Question peritonsillar abscess. ULTRASOUND NECK SOFT TISSUE: Utilizing 2-D realtime and color flow imaging, examination of the neck was obtained for possible abscess 04/24/20 - no comparison ultrasound of the neck excluding the thyroid was available, however there was a thyroid ultrasound which was noted dated 03/19/16. No gross abnormality of the thyroid was identified. Multiple hypoechoic masses with echogenic coleen showing minimal blood flow within them - the coleen - compatible with lymph nodes, are noted in the neck bilaterally - anterior cervical extending posteriorly somewhat. The largest of these was on the left below the jaw, lower in the neck measuring approximately 2.7 cm, other lymph nodes in the neck measured on the order of 1.5 to 1.7 cm to approximately 2 cm. No finding to strongly suggest an abscess was identified. IMPRESSION: Lymphadenopathy bilateral neck, somewhat more prominent on the left. These may be reactive to infection and should be correlated clinically. MTDD
[2020-04-24] MEDS ORDERED: Ketorolac 15 MG/ML SDV IVPUSH PRN (14:45)
[2020-04-24] MEDS: Enoxaparin 40 MG/0.4 ML Syringe SUBCUT SCH (14:46)
[2020-04-24] MEDS ORDERED: Fluticasone Propionate Nasal Spray 16 GM Bottle NASBOTH PRN (18:56)
[2020-04-24] MEDS ORDERED: Sodium Chloride 0.9% 10 ML Syringe FLUSH PRN (20:00)
[2020-04-24] MEDS: atorvaSTATin 40 MG Tab PO SCH (20:36)
[2020-04-24] MEDS: rOPINIRole 0.5 MG Tab PO SCH (21:12)
[2020-04-24] MEDS ORDERED: 50% Dextrose in Water 50 ML Syringe IVPUSH PRN (21:18)
[2020-04-24] MEDS ORDERED: Glucagon,Human Recombinant 1 MG Vial IM PRN (21:18)
[2020-04-24] MEDS ORDERED: Insulin Lispro 100 Unit/ML 3 ML KwikPen SUBCUT ONE (21:19)
[2020-04-25] MEDS: Clindamycin in 0.9 % Sod Chlor 600 MG in Premix Bag 1 BAG IV SCH ×4 (02:37→08:15)
[2020-04-25] MEDS: Acetaminophen 325 MG Tab PO PRN ×2 (03:27→16:49)
[2020-04-25] MEDS: Ferrous Sulfate 325 MG Tab PO SCH (08:14)
[2020-04-25] MEDS: metFORMIN 1,000 MG Tab PO SCH ×2 (08:14→17:42)
[2020-04-25] MEDS: Insulin Lispro 100 Unit/ML 3 ML KwikPen SUBCUT SCH ×3 (08:14→17:43)
[2020-04-25] MEDS: Pantoprazole 40 MG Vial IVPUSH SCH (08:15)
[2020-04-25] MEDS: Insulin Glargine,Human Rec. Analog 100 Units/ML 3 ML Pen SUBCUT SCH ×2 (08:15→09:27)
--- NOTE | 2020-04-25 09:01 | PCM.PN ---
- General Info Date of Service: 04/25/20 Admission Dx/Problem (Free Text): Admission Diagnosis/Problem Admission Diagnosis/Problem Peritonsillar abscess Subjective Update: Patient states that she feels better overall and has been eating regular food but she thinks that the regular food is irritating her throat a little bit and her throat is little bit more sore today than yesterday. Otherwise she feels better and has no new complaints. Functional Status: Reports: Pain Controlled, Tolerating Diet, Ambulating, Urinating - Review of Systems General: Reports: No Symptoms HEENT: Reports: Sore Throat Pulmonary: Reports: No Symptoms Cardiovascular: Reports: No Symptoms Gastrointestinal: Reports: No Symptoms Genitourinary: Reports: No Symptoms Musculoskeletal: Reports: No Symptoms Skin: Reports: No Symptoms Neurological: Reports: No Symptoms Psychiatric: Reports: No Symptoms - Patient Data Vitals - Most Recent: Last Vital Signs Temp 36.6 C 04/25/20 00:00 Pulse 86 04/25/20 00:00 Resp 17 04/25/20 00:00 BP 118/66 04/25/20 00:00 Pulse Ox 96 04/25/20 00:00 Weight - Most Recent: 97.069 kg I&O - Last 24 Hours: Intake & Output 04/24/20 04/25/20 04/25/20 22:59 06:59 14:59 Intake Total 48 50 Balance 48 50 Lab Results Last 24 Hours: Laboratory Results - last 24 hr 04/24/20 04/24/20 04/24/20 Range/Units 12:46 17:34 18:00 WBC (3.0-10.3) x10-3/uL RBC (3.60-5.20) x10(6)uL Hgb (11.4-15.5) g/dL Hct (34.2-48.2) % MCV (76.7-100.5) fL MCH (23.9-33.9) pg MCHC (31.9-34.8) g/dL RDW (12.3-16.5) % Plt Count (151-488) x10(3)uL MPV (7.1-12.4) fL Neut % (Auto) (30.8-76.2) % Lymph % (Auto) (18.4-52.1) % [place] % (Auto) (4.4-15.7) % Eos % (Auto) (0.6-8.1) % Baso % (Auto) (0.2-1.5) % Neut # (Auto) (1.5-6.3) x10-3/uL Lymph # (Auto) (1.0-4.4) x10-3/uL [place] # (Auto) (0.3-1.0) x10-3/uL Eos # (Auto) (0.0-0.8) x10-3/uL Baso # (Auto) (0.0-0.1) x10-3/uL Glucose 396 H (80-116) mg/dL POC Glucose 353 H 412 H* (74-100) mg/dL 04/24/20 04/25/20 04/25/20 Range/Units 20:29 00:20 06:15 WBC 13.5 H (3.0-10.3) x10-3/uL RBC 4.35 (3.60-5.20) x10(6)uL Hgb 9.0 L (11.4-15.5) g/dL Hct 28.9 L (34.2-48.2) % MCV 66.4 L (76.7-100.5) fL MCH 20.7 L (23.9-33.9) pg MCHC 31.1 L (31.9-34.8) g/dL RDW 26.5 H (12.3-16.5) % Plt Count 383 (151-488) x10(3)uL MPV 8.8 (7.1-12.4) fL Neut % (Auto) 77.5 H (30.8-76.2) % Lymph % (Auto) 17.1 L (18.4-52.1) % [place] % (Auto) 5.2 (4.4-15.7) % Eos % (Auto) 0.1 L (0.6-8.1) % Baso % (Auto) 0.1 L (0.2-1.5) % Neut # (Auto) 10.5 H (1.5-6.3) x10-3/uL Lymph # (Auto) 2.3 (1.0-4.4) x10-3/uL [place] # (Auto) 0.7 (0.3-1.0) x10-3/uL Eos # (Auto) 0.0 (0.0-0.8) x10-3/uL Baso # (Auto) 0.0 (0.0-0.1) x10-3/uL Glucose (80-116) mg/dL POC Glucose 351 H 268 H (74-100) mg/dL Med Orders - Current: Current Medications Acetaminophen (Acetaminophen 325 Mg Tab) 650 mg PO Q4H PRN PRN Reason: Pain (moderate 4-6) Last Admin: 04/25/20 03:27 Dose: 650 mg Documented by: Atorvastatin Calcium (Lipitor) 40 mg PO BEDTIME [facility] Last Admin: 04/24/20 20:36 Dose: 40 mg Documented by: Clindamycin HCl (Clindamycin Hcl 150 Mg Cap) 600 mg PO Q6H [facility] Dextrose/Water (Dextrose 50% In Water) 50 ml IVPUSH ASDIRECTED PRN PRN Reason: Hypoglycemia Docusate Sodium (Colace) 100 mg PO DAILY PRN PRN Reason: Constipation Enoxaparin Sodium (Lovenox) 40 mg SUBCUT Q24H [facility] Last Admin: 04/24/20 14:46 Dose: 40 mg Documented by: Ferrous Sulfate (Ferrous Sulfate) 325 mg PO DAILY [facility] Last Admin: 04/25/20 08:14 Dose: 325 mg Documented by: Fluticasone Propionate (Flonase) 0 gm NASBOTH BID PRN PRN Reason: Allergies Glucagon (Glucagen) 1 mg IM ASDIRECTED PRN PRN Reason: Hypoglycemia Insulin Glargine (Insulin Glargine,Human Rec. Analog 100 Units/Ml 3 Ml Pen) 15 units SUBCUT DAILY [facility] Insulin Human Lispro (Humalog) 0 unit SUBCUT TIDMEALS [facility]; Protocol Last Admin: 04/25/20 08:14 Dose: 6 units Documented by: Magnesium Hydroxide (Milk Of Magnesia) 30 ml PO BID PRN PRN Reason: Constipation Metformin HCl (Glucophage) 1,000 mg PO BIDMEALS [facility] Last Admin: 04/25/20 08:14 Dose: 1,000 mg Documented by: Morphine Sulfate (Morphine) 2 mg IVPUSH Q4H PRN PRN Reason: Pain (severe 7-10) Pantoprazole Sodium (Pantoprazole 40 Mg Tab.Cr) 40 mg PO 0600 [facility] Ropinirole HCl (Requip) 0.25 mg PO BEDTIME [facility] Last Admin: 04/24/20 21:12 Dose: 0.25 mg Documented by: Sodium Chloride (Saline Flush) 10 ml FLUSH ASDIRECTED PRN PRN Reason: Keep Vein Open Last Admin: 04/25/20 08:15 Dose: 10 ml Documented by: Discontinued Medications Ceftriaxone Sodium (Rocephin) 1 gm IVPUSH ONETIME ONE Stop: 04/23/20 09:44 Last Admin: 04/23/20 11:26 Dose: 1 gm Documented by: Dextrose/Water (Dextrose 50% In Water) 50 ml IVPUSH ASDIRECTED PRN PRN Reason: Hypoglycemia Dextrose/Water (Dextrose 50% In Water) 50 ml IVPUSH ASDIRECTED PRN PRN Reason: Hypoglycemia Glucagon (Glucagen) 1 mg IM ASDIRECTED PRN PRN Reason: Hypoglycemia Glucagon (Glucagen) 1 mg IM ASDIRECTED PRN PRN Reason: Hypoglycemia Sodium Chloride (Normal Saline) 1,000 mls @ 999 mls/hr IV .BOLUS ONE Stop: 04/23/20 10:43 Last Admin: 04/23/20 11:23 Dose: 999 mls/hr Documented by: Sodium Chloride (Normal Saline) 1,000 mls @ 125 mls/hr IV .BOLUS ONE Stop: 04/23/20 20:28 Last Admin: 04/23/20 12:34 Dose: 125 mls/hr Documented by: Metronidazole 500 mg/ Premix 100 mls @ 100 mls/hr IV ONETIME ONE Stop: 04/23/20 13:29 Last Admin: 04/23/20 12:37 Dose: 100 mls/hr Documented by: Clindamycin/Sodium Chloride (600 mg/ Premix) 50 mls @ 150 mls/hr IV Q6H [facility] Last Infusion: 04/25/20 02:57 Dose: Infused Documented by: Sodium Chloride (Normal Saline) 1,000 mls @ 75 mls/hr IV ASDIRECTED [facility] Last Admin: 04/23/20 22:25 Dose: 75 mls/hr Documented by: Insulin Glargine (Insulin Glargine,Human Rec. Analog 100 Units/Ml 3 Ml Pen) 10 units SUBCUT DAILY [facility] Last Admin: 04/25/20 08:15 Dose: 10 units Documented by: Insulin Human Lispro (Humalog) 10 unit SUBCUT ONETIME ONE Stop: 04/24/20 21:20 Last Admin: 04/24/20 21:38 Dose: 10 units Documented by: Insulin Lispro Protam/Lispro Human (Humalog Mix 75-25) 0 unit SUBCUT ASDIRECTED [facility]; Protocol Iopamidol (Isovue-370 (76%)) 100 ml IV . DIRECTED ONE Stop: 04/23/20 09:55 Last Admin: 04/23/20 09:45 Dose: 100 ml Documented by: Ketorolac Tromethamine (Toradol) 30 mg IVPUSH ONETIME ONE Stop: 04/23/20 09:44 Last Admin: 04/23/20 11:24 Dose: 30 mg Documented by: Ketorolac Tromethamine (Toradol) 15 mg IVPUSH Q6H [facility] Stop: 04/24/20 23:59 Last Admin: 04/24/20 02:56 Dose: 15 mg Documented by: Ketorolac Tromethamine (Toradol) Confirm Administered Dose 30 mg .ROUTE .STK-MED ONE Stop: 04/24/20 01:13 Last Admin: 04/24/20 02:54 Dose: Not Given Documented by: Ketorolac Tromethamine (Toradol) 15 mg IVPUSH Q6H [facility] Stop: 04/24/20 23:59 Last Admin: 04/24/20 08:12 Dose: 15 mg Documented by: Ketorolac Tromethamine (Ketorolac 15 Mg/Ml Sdv) 15 mg IVPUSH Q6H PRN PRN Reason: Pain (moderate 4-6) Stop: 04/29/20 14:46 Metformin HCl (Glucophage) 1,000 mg PO BIDMEALS [facility] Last Admin: 04/23/20 17:47 Dose: 1,000 mg Documented by: Methylprednisolone Sodium Succinate (Solu-Medrol) 125 mg IVPUSH ONETIME ONE Stop: 04/23/20 12:30 Last Admin: 04/23/20 12:37 Dose: 125 mg Documented by: Methylprednisolone Sodium Succinate (Solu-Medrol) 60 mg IV DAILY [facility] Stop: 04/25/20 23:59 Last Admin: 04/24/20 08:14 Dose: 60 mg Documented by: Pantoprazole Sodium (Pantoprazole 40 Mg Vial) 40 mg IVPUSH DAILY [facility] Last Admin: 04/24/20 08:14 Dose: 40 mg Documented by: - Exam Quality Assessment: DVT Prophylaxis General: Alert, Oriented, Cooperative, No Acute Distress HEENT: EOMI, Mucous Membr. Moist/[place], Other (No significant change in the appearance of tonsils bilateral, tonsil stone right tonsil. Palpation of the neck shows resolution of superior anterior lymph node on the right but continued to palpation with enlarged lymph node on the left) Lungs: Clear to Auscultation Cardiovascular: Regular Rate, Regular Rhythm, No Murmurs GI/Abdominal Exam: Normal Bowel Sounds, Soft, Non-Tender Extremities: Normal Inspection Peripheral Pulses: 2+: Radial (L), Radial (R), Dorsalis Pedis (L), Dorsalis Pedis (R) Skin: Warm, Dry Neurological: No New Focal Deficit Psy/Mental Status: Alert, Normal Affect, Normal Mood - Patient Data Lab Results Last 24 hrs: Laboratory Results - last 24 hr 04/24/20 04/24/20 04/24/20 Range/Units 12:46 17:34 18:00 WBC (3.0-10.3) x10-3/uL RBC (3.60-5.20) x10(6)uL Hgb (11.4-15.5) g/dL Hct (34.2-48.2) % MCV (76.7-100.5) fL MCH (23.9-33.9) pg MCHC (31.9-34.8) g/dL RDW (12.3-16.5) % Plt Count (151-488) x10(3)uL MPV (7.1-12.4) fL Neut % (Auto) (30.8-76.2) % Lymph % (Auto) (18.4-52.1) % [place] % (Auto) (4.4-15.7) % Eos % (Auto) (0.6-8.1) % Baso % (Auto) (0.2-1.5) % Neut # (Auto) (1.5-6.3) x10-3/uL Lymph # (Auto) (1.0-4.4) x10-3/uL [place] # (Auto) (0.3-1.0) x10-3/uL Eos # (Auto) (0.0-0.8) x10-3/uL Baso # (Auto) (0.0-0.1) x10-3/uL Glucose 396 H (80-116) mg/dL POC Glucose 353 H 412 H* (74-100) mg/dL 04/24/20 04/25/20 04/25/20 Range/Units 20:29 00:20 06:15 WBC 13.5 H (3.0-10.3) x10-3/uL RBC 4.35 (3.60-5.20) x10(6)uL Hgb 9.0 L (11.4-15.5) g/dL Hct 28.9 L (34.2-48.2) % MCV 66.4 L (76.7-100.5) fL MCH 20.7 L (23.9-33.9) pg MCHC 31.1 L (31.9-34.8) g/dL RDW 26.5 H (12.3-16.5) % Plt Count 383 (151-488) x10(3)uL MPV 8.8 (7.1-12.4) fL Neut % (Auto) 77.5 H (30.8-76.2) % Lymph % (Auto) 17.1 L (18.4-52.1) % [place] % (Auto) 5.2 (4.4-15.7) % Eos % (Auto) 0.1 L (0.6-8.1) % Baso % (Auto) 0.1 L (0.2-1.5) % Neut # (Auto) 10.5 H (1.5-6.3) x10-3/uL Lymph # (Auto) 2.3 (1.0-4.4) x10-3/uL [place] # (Auto) 0.7 (0.3-1.0) x10-3/uL Eos # (Auto) 0.0 (0.0-0.8) x10-3/uL Baso # (Auto) 0.0 (0.0-0.1) x10-3/uL Glucose (80-116) mg/dL POC Glucose 351 H 268 H (74-100) mg/dL Result Diagrams: 03/09/21 06:15 04/24/20 06:20 Sepsis Event Note - Evaluation Sepsis Screening Result: No Definite Risk - Focused Exam Vital Signs: Vital Signs Temp Pulse Resp BP Pulse Ox 04/25/20 00:00 36.6 C 86 17 118/66 96 - Problem List & Annotations (1) Microcytic anemia SNOMED Code(s): 504386297 Code(s): D50.9 - IRON DEFICIENCY ANEMIA, UNSPECIFIED Status: Chronic Current Visit: Yes (2) Cigarette smoker SNOMED Code(s): 34449509 Code(s): F17.210 - NICOTINE DEPENDENCE, CIGARETTES, UNCOMPLICATED Status: Chronic Current Visit: Yes (3) Anemia due to unknown mechanism SNOMED Code(s): 84423693 Code(s): D64.9 - ANEMIA, UNSPECIFIED Status: Chronic Current Visit: No Annotation/Comment:: Ottoniel remains anemic, and will follow up with PCP. (4) Obesity SNOMED Code(s): 191416911 Code(s): E66.9 - OBESITY, UNSPECIFIED Status: Chronic Current Visit: No (5) Diabetes mellitus type 2, uncontrolled SNOMED Code(s): 872900068, 723338653 Code(s): E11.65 - TYPE 2 DIABETES MELLITUS WITH HYPERGLYCEMIA Status: Chronic Current Visit: No Qualifiers: Glycemic state: with hyperglycemia Qualified Code(s): E11.65 - Type 2 diabetes mellitus with hyperglycemia (6) Neck swelling SNOMED Code(s): 224689774 Code(s): R22.1 - LOCALIZED SWELLING, MASS AND LUMP, NECK Status: Acute Current Visit: Yes (7) Peritonsillar abscess SNOMED Code(s): 82138458 Code(s): J36 - PERITONSILLAR ABSCESS Status: Acute Current Visit: Yes (8) Swallowing difficulty SNOMED Code(s): 53535234, 342234225 Code(s): R13.10 - DYSPHAGIA, UNSPECIFIED Status: Acute Current Visit: Yes (9) Elevated WBC count SNOMED Code(s): 621074678, 755865472 Code(s): D72.829 - ELEVATED WHITE BLOOD CELL COUNT, UNSPECIFIED Status: Acute Current Visit: Yes (10) Left shift SNOMED Code(s): 92075803 Code(s): D72.89 - OTHER SPECIFIED DISORDERS OF WHITE BLOOD CELLS Status: Acute Current Visit: Yes (11) Tachycardia SNOMED Code(s): 9684532 Code(s): R00.0 - TACHYCARDIA, UNSPECIFIED Status: Acute Current Visit: Yes - Problem List Review Problem List Initiated/Reviewed/Updated: Yes - My Orders Last 24 Hours: My Active Orders 04/24/20 08:00 metFORMIN [Glucophage] 1,000 mg PO BIDMEALS 04/24/20 09:00 Ferrous Sulfate 325 mg PO DAILY 04/24/20 10:22 POC Glucose [Blood Glucose Check, Bedside] [RC] WITHMEALSANDBED 04/24/20 11:17 Admission Status [Patient Status] [ADT] Routine 04/24/20 18:56 Fluticasone Propionate [Flonase] 0 gm NASBOTH BID PRN 04/24/20 20:00 Sodium Chloride 0.9% [Saline Flush] 10 ml FLUSH ASDIRECTED PRN 04/24/20 21:00 atorvaSTATin [Lipitor] 40 mg PO BEDTIME rOPINIRole [Requip] 0.25 mg PO BEDTIME 04/25/20 08:38 Guaiac [OCCULT BLOOD DIAGNOSTIC] [OP] Routine 04/25/20 08:45 clindamycin HCL [Cleocin] 600 mg PO Q6H 04/25/20 09:00 Insulin Glarg,Human.Rec.Analog [LantUS Solostar] 15 units SUBCUT DAILY 04/26/20 06:00 Pantoprazole [ProTONIX] 40 mg PO 0600 - Plan Plan:: Ultrasound showed no obvious abscess. Patient will be switched to oral antibiotics. White blood cell count trended down but only slightly. Patient also has increased anemia likely secondary to her hydration now that the patient is eating and drinking normally. Patient has a history of anemia, blood transfusions, and has had EGD and colonoscopy in the past. We will check a stool guaiac to ensure no obvious cause of increasing anemia. If patient tolerates p.o. medication and continues to improve anticipate discharge tomorrow. Note that patient was given 10 units of Lantus yesterday as well as sliding scale insulin and has had significantly improved glucose. Increase Lantus to 15 units today. Anticipate sending the patient home with insulin. Note that the patient has used insulin in the past.
[2020-04-25] MEDS: Pantoprazole 40 MG Tab.CR PO SCH (09:29)
[2020-04-25] MEDS: Clindamycin HCl 150 MG Cap PO SCH ×3 (09:29→21:33)
[2020-04-25] MEDS: Enoxaparin 40 MG/0.4 ML Syringe SUBCUT SCH (14:56)
[2020-04-25] MEDS ORDERED: Ibuprofen 600 MG Tab PO PRN (17:06)
[2020-04-25] MEDS: rOPINIRole 0.5 MG Tab PO SCH (21:34)
[2020-04-25] MEDS: atorvaSTATin 40 MG Tab PO SCH (21:35)
[2020-04-26] MEDS: Clindamycin HCl 150 MG Cap PO SCH ×2 (02:20→08:06)
[2020-04-26] MEDS: Pantoprazole 40 MG Tab.CR PO SCH (06:42)
[2020-04-26] MEDS: metFORMIN 1,000 MG Tab PO SCH (08:06)
[2020-04-26] MEDS: Ferrous Sulfate 325 MG Tab PO SCH (08:07)
[2020-04-26] MEDS: Insulin Glargine,Human Rec. Analog 100 Units/ML 3 ML Pen SUBCUT SCH (08:07)
[2020-04-26] MEDS: Insulin Lispro 100 Unit/ML 3 ML KwikPen SUBCUT SCH (08:08)
[2020-04-26 08:51] VITALS: BP 143/95; PULSE 85
--- NOTE | 2020-04-26 08:53 | PCM.DCSUM1 ---
Discharge Summary - Hospital Course Free Text/Narrative:: Patient came to the emergency department with complaint of dysphagia, sore throat. CT scan revealed peritonsillar inflammation suspicious for peritonsillar abscess. Patient was treated with IV clindamycin for 2 days and then switched to p.o. clindamycin. Ultrasound of the soft tissues of the neck revealed multiple large lymph nodes, left greater than right, but no abscess. Dysphagia and sore throat slowly resolved, patient's white blood cell count cont inued to decline and is now normal after 2 days of oral clindamycin. Patient will be discharged with clindamycin p.o. to complete a 10-day course. Patient was noted to have chronic diabetes mellitus type 2 poorly controlled and microcytic anemia. Patient was started on sliding scale insulin and then on insulin glargine. Patient will be sent home with 15 units daily insulin glargine and instructions to follow-up with her primary care physician regarding education and testing supplies for supplemental insulin with meals. Patient is strongly encouraged to follow-up with her primary care physician regarding her microcytic anemia. Conversations with the patient showed that she can remember having EGD, colonoscopy, and that she swallowed a camera but she states that she is not aware of any findings of GI bleed. However, she was positive on stool guaiac during this admission. Patient does not remember if she ever had a tagged red blood cell scan. Diagnosis: Stroke: No - Discharge Data Discharge Date: 04/26/20 Discharge Disposition: Home, Self-Care 01 Condition: Good - Referral to Home Health Primary Care Physician: Martita Mabry, SHOE ASSOCIATE - Discharge Diagnosis/Problem(s) (1) Microcytic anemia SNOMED Code(s): 575013703 ICD Code: D50.9 - IRON DEFICIENCY ANEMIA, UNSPECIFIED Status: Chronic Current Visit: Yes (2) Cigarette smoker SNOMED Code(s): 52024718 ICD Code: F17.210 - NICOTINE DEPENDENCE, CIGARETTES, UNCOMPLICATED Status: Chronic Current Visit: Yes (3) Anemia due to unknown mechanism SNOMED Code(s): 88335891 ICD Code: D64.9 - ANEMIA, UNSPECIFIED Status: Chronic Current Visit: No Problem Details: Breezy remains anemic, and will follow up with PCP. (4) Obesity SNOMED Code(s): 524524180 ICD Code: E66.9 - OBESITY, UNSPECIFIED Status: Chronic Current Visit: No (5) Diabetes mellitus type 2, uncontrolled SNOMED Code(s): 752600908, 350249509 ICD Code: E11.65 - TYPE 2 DIABETES MELLITUS WITH HYPERGLYCEMIA Status: Chronic Current Visit: No Qualifiers: Glycemic state: with hyperglycemia Qualified Code(s): E11.65 - Type 2 diabetes mellitus with hyperglycemia (6) Neck swelling SNOMED Code(s): 642168660 ICD Code: R22.1 - LOCALIZED SWELLING, MASS AND LUMP, NECK Status: Acute Current Visit: Yes (7) Peritonsillar abscess SNOMED Code(s): 23724567 ICD Code: J36 - PERITONSILLAR ABSCESS Status: Resolved Current Visit: Yes (8) Swallowing difficulty SNOMED Code(s): 97646353, 736161280 ICD Code: R13.10 - DYSPHAGIA, UNSPECIFIED Status: Resolved Current Visit: Yes (9) Elevated WBC count SNOMED Code(s): 178102376, 575531318 ICD Code: D72.829 - ELEVATED WHITE BLOOD CELL COUNT, UNSPECIFIED Status: Resolved Current Visit: Yes (10) Left shift SNOMED Code(s): 76135846 ICD Code: D72.89 - OTHER SPECIFIED DISORDERS OF WHITE BLOOD CELLS Status: Resolved Current Visit: Yes (11) Tachycardia SNOMED Code(s): 9767169 ICD Code: R00.0 - TACHYCARDIA, UNSPECIFIED Status: Resolved Current Visit: Yes - Patient Instructions Diet: Diabetic Diet Activity: As Tolerated Driving: May Drive Today Showering/Bathing: May Shower - Discharge Plan *PRESCRIPTION DRUG MONITORING PROGRAM REVIEWED*: Not Applicable *COPY OF PRESCRIPTION DRUG MONITORING REPORT IN PATIENT CHRISTINE: Not Applicable Prescriptions/Med Rec: clindamycin HCL [Cleocin] 600 mg PO Q6H #24 cap Insulin Glarg,Human.Rec.Analog [Lantus Solostar] 15 units SUBCUT DAILY #2 pen Home Medications: Home Meds metFORMIN [Glucophage] 1,000 mg PO BID 09/19/17 [History] Acetaminophen [Tylenol] 650 mg PO Q4H PRN 02/20/18 [History] Empagliflozin [Jardiance] 10 mg PO DAILY 02/20/18 [History] Ferrous Sulfate [Iron] 325 mg PO BID 02/20/18 [History] Fluticasone Propionate [Flonase] 1 spray NASBOTH BID PRN 04/24/20 [History] atorvaSTATin [Lipitor] 40 mg PO BEDTIME 04/24/20 [History] rOPINIRole [Requip] 0.25 mg PO BEDTIME 04/24/20 [History] Insulin Glarg,Human.Rec.Analog [Lantus Solostar] 15 units SUBCUT DAILY #2 pen 04/26/20 [Rx] clindamycin HCL [Cleocin] 600 mg PO Q6H #24 cap 04/26/20 [Rx] Patient Handouts: Type 2 Diabetes Mellitus, Diagnosis, Adult, Insulin Treatment for Diabetes Mellitus, Diabetes Mellitus and Foot Care, Insulin Injection Instructions, Using Insulin Pens, Adult, Peritonsillar Abscess, Metformin tablets, Fall Prevention in Hospitals, Adult, Insulin Glargine injection, Insulin Lispro injection, Venous Thromboembolism Prevention Forms: ED Department Discharge Referrals: Martita Mabry SHOE ASSOCIATE [Primary Care Provider] - - Discharge Summary/Plan Comment DC Time >30 min.: No - General Info Date of Service: 04/26/20 Admission Dx/Problem (Free Text: Admission Diagnosis/Problem Admission Diagnosis/Problem Peritonsillar abscess Subjective Update: Patient states that she feels well today and has no complaints. She states that she no longer has any complaints of sore throat or dysphagia. She states she is ready to go home. Functional Status: Reports: Pain Controlled, Tolerating Diet, Ambulating, Urinating - Review of Systems General: Reports: No Symptoms HEENT: Reports: No Symptoms Pulmonary: Reports: No Symptoms Cardiovascular: Reports: No Symptoms Gastrointestinal: Reports: No Symptoms Genitourinary: Reports: No Symptoms Musculoskeletal: Reports: No Symptoms Skin: Reports: No Symptoms Neurological: Reports: No Symptoms Psychiatric: Reports: No Symptoms - Patient Data Vitals - Most Recent: Last Vital Signs Temp 36.3 C 04/26/20 04:00 Pulse 71 04/26/20 04:00 Resp 18 04/26/20 04:00 BP 115/62 04/26/20 04:00 Pulse Ox 97 04/26/20 04:00 Weight - Most Recent: 97.069 kg Lab Results - Last 24 hrs: Laboratory Results - last 24 hr 04/25/20 04/25/20 04/25/20 Range/Units 11:07 16:52 20:01 WBC (3.0-10.3) x10-3/uL RBC (3.60-5.20) x10(6)uL Hgb (11.4-15.5) g/dL Hct (34.2-48.2) % MCV (76.7-100.5) fL MCH (23.9-33.9) pg MCHC (31.9-34.8) g/dL RDW (12.3-16.5) % Plt Count (151-488) x10(3)uL MPV (7.1-12.4) fL Neut % (Auto) (30.8-76.2) % Lymph % (Auto) (18.4-52.1) % [place] % (Auto) (4.4-15.7) % Eos % (Auto) (0.6-8.1) % Baso % (Auto) (0.2-1.5) % Neut # (Auto) (1.5-6.3) x10-3/uL Lymph # (Auto) (1.0-4.4) x10-3/uL [place] # (Auto) (0.3-1.0) x10-3/uL Eos # (Auto) (0.0-0.8) x10-3/uL Baso # (Auto) (0.0-0.1) x10-3/uL POC Glucose 204 H 187 H 203 H (74-100) mg/dL 04/26/20 Range/Units 06:20 WBC 7.8 (3.0-10.3) x10-3/uL RBC 4.66 (3.60-5.20) x10(6)uL Hgb 9.6 L (11.4-15.5) g/dL Hct 31.2 L (34.2-48.2) % MCV 67.0 L (76.7-100.5) fL MCH 20.6 L (23.9-33.9) pg MCHC 30.7 L (31.9-34.8) g/dL RDW 27.0 H (12.3-16.5) % Plt Count 394 (151-488) x10(3)uL MPV 8.9 (7.1-12.4) fL Neut % (Auto) 61.6 (30.8-76.2) % Lymph % (Auto) 28.6 (18.4-52.1) % [place] % (Auto) 8.0 (4.4-15.7) % Eos % (Auto) 0.9 (0.6-8.1) % Baso % (Auto) 0.9 (0.2-1.5) % Neut # (Auto) 4.8 (1.5-6.3) x10-3/uL Lymph # (Auto) 2.2 (1.0-4.4) x10-3/uL [place] # (Auto) 0.6 (0.3-1.0) x10-3/uL Eos # (Auto) 0.1 (0.0-0.8) x10-3/uL Baso # (Auto) 0.1 (0.0-0.1) x10-3/uL POC Glucose (74-100) mg/dL [facility] Results - Last 24 hrs: Microbiology 04/25/20 12:25 Stool Occult Blood ([facility]ENDOL[facility]) - Final Stool / Feces Med Orders - Current: Current Medications Acetaminophen (Acetaminophen 325 Mg Tab) 650 mg PO Q4H PRN PRN Reason: Pain (moderate 4-6) Last Admin: 04/25/20 16:49 Dose: 650 mg Documented by: Atorvastatin Calcium (Atorvastatin 40 Mg Tab) 40 mg PO BEDTIME [facility] Last Admin: 04/25/20 21:35 Dose: 40 mg Documented by: Clindamycin HCl (Clindamycin Hcl 150 Mg Cap) 600 mg PO Q6H [facility] Last Admin: 04/26/20 08:06 Dose: 600 mg Documented by: Dextrose/Water (50% Dextrose In Water 50 Ml Syringe) 50 ml IVPUSH ASDIRECTED PRN PRN Reason: Hypoglycemia Docusate Sodium (Docusate Sodium 100 Mg Cap) 100 mg PO DAILY PRN PRN Reason: Constipation Enoxaparin Sodium (Enoxaparin 40 Mg/0.4 Ml Syringe) 40 mg SUBCUT Q24H [facility] Last Admin: 04/25/20 14:56 Dose: 40 mg Documented by: Ferrous Sulfate (Ferrous Sulfate 325 Mg Tab) 325 mg PO DAILY [facility] Last Admin: 04/26/20 08:07 Dose: 325 mg Documented by: Fluticasone Propionate (Fluticasone Propionate Nasal [place] 16 Gm Bottle) 0 gm NASBOTH BID PRN PRN Reason: Allergies Glucagon (Glucagon,Human Recombinant 1 Mg Vial) 1 mg IM ASDIRECTED PRN PRN Reason: Hypoglycemia Insulin Glargine (Insulin Glargine,Human Rec. Analog 100 Units/Ml 3 Ml Pen) 15 units SUBCUT DAILY [facility] Last Admin: 04/26/20 08:07 Dose: 15 units Documented by: Insulin Human Lispro (Insulin Lispro 100 Unit/Ml 3 Ml Kwikpen) 0 unit SUBCUT TIDMEALS [facility]; Protocol Last Admin: 04/26/20 08:08 Dose: 4 units Documented by: Magnesium Hydroxide (Magnesium Hydroxide 400 Mg/5 Ml Susp 30 Ml Cup) 30 ml PO BID PRN PRN Reason: Constipation Metformin HCl (Metformin 1,000 Mg Tab) 1,000 mg PO BIDMEALS [facility] Last Admin: 04/26/20 08:06 Dose: 1,000 mg Documented by: Morphine Sulfate (Morphine 2 Mg/Ml Syringe) 2 mg IVPUSH Q4H PRN PRN Reason: Pain (severe 7-10) Pantoprazole Sodium (Pantoprazole 40 Mg Tab.Cr) 40 mg PO 0600 [facility] Last Admin: 04/26/20 06:42 Dose: 40 mg Documented by: Ropinirole HCl (Ropinirole 0.5 Mg Tab) 0.25 mg PO BEDTIME [facility] Last Admin: 04/25/20 21:34 Dose: 0.25 mg Documented by: Discontinued Medications Ceftriaxone Sodium (Ceftriaxone 2 Gm Vial) 1 gm IVPUSH ONETIME ONE Stop: 04/23/20 09:44 Last Admin: 04/23/20 11:26 Dose: 1 gm Documented by: Dextrose/Water (50% Dextrose In Water 50 Ml Syringe) 50 ml IVPUSH ASDIRECTED PRN PRN Reason: Hypoglycemia Dextrose/Water (50% Dextrose In Water 50 Ml Syringe) 50 ml IVPUSH ASDIRECTED PRN PRN Reason: Hypoglycemia Glucagon (Glucagon,Human Recombinant 1 Mg Vial) 1 mg IM ASDIRECTED PRN PRN Reason: Hypoglycemia Glucagon (Glucagon,Human Recombinant 1 Mg Vial) 1 mg IM ASDIRECTED PRN PRN Reason: Hypoglycemia Sodium Chloride (Normal Saline) 1,000 mls @ 999 mls/hr IV .BOLUS ONE Stop: 04/23/20 10:43 Last Admin: 04/23/20 11:23 Dose: 999 mls/hr Documented by: Sodium Chloride (Normal Saline) 1,000 mls @ 125 mls/hr IV .BOLUS ONE Stop: 04/23/20 20:28 Last Admin: 04/23/20 12:34 Dose: 125 mls/hr Documented by: Metronidazole 500 mg/ Premix 100 mls @ 100 mls/hr IV ONETIME ONE Stop: 04/23/20 13:29 Last Admin: 04/23/20 12:37 Dose: 100 mls/hr Documented by: Clindamycin/Sodium Chloride (600 mg/ Premix) 50 mls @ 150 mls/hr IV Q6H [facility] Last Infusion: 04/25/20 02:57 Dose: Infused Documented by: Sodium Chloride (Normal Saline) 1,000 mls @ 75 mls/hr IV ASDIRECTED [facility] Last Admin: 04/23/20 22:25 Dose: 75 mls/hr Documented by: Ibuprofen (Ibuprofen 600 Mg Tab) 600 mg PO Q6H PRN PRN Reason: Pain Last Admin: 04/25/20 17:42 Dose: 600 mg Documented by: Insulin Glargine (Insulin Glargine,Human Rec. Analog 100 Units/Ml 3 Ml Pen) 10 units SUBCUT DAILY [facility] Last Admin: 04/25/20 08:15 Dose: 10 units Documented by: Insulin Human Lispro (Insulin Lispro 100 Unit/Ml 3 Ml Kwikpen) 10 unit SUBCUT ONETIME ONE Stop: 04/24/20 21:20 Last Admin: 04/24/20 21:38 Dose: 10 units Documented by: Insulin Lispro Protam/Lispro Human (Insulin Lispro Protamine/Lispro 75-25 100 Units/Ml 3 Ml Kwikpen) 0 unit SUBCUT ASDIRECTED [facility]; Protocol Iopamidol (Iopamidol 755 Mg/Ml 100 Ml Bottle) 100 ml IV . DIRECTED ONE Stop: 04/23/20 09:55 Last Admin: 04/23/20 09:45 Dose: 100 ml Documented by: Ketorolac Tromethamine (Ketorolac 30 Mg/Ml Sdv) 30 mg IVPUSH ONETIME ONE Stop: 04/23/20 09:44 Last Admin: 04/23/20 11:24 Dose: 30 mg Documented by: Ketorolac Tromethamine (Ketorolac 15 Mg/Ml Sdv) 15 mg IVPUSH Q6H [facility] Stop: 04/24/20 23:59 Last Admin: 04/24/20 02:56 Dose: 15 mg Documented by: Ketorolac Tromethamine (Ketorolac 30 Mg/Ml Sdv) Confirm Administered Dose 30 mg .ROUTE .STK-MED ONE Stop: 04/24/20 01:13 Last Admin: 04/24/20 02:54 Dose: Not Given Documented by: Ketorolac Tromethamine (Ketorolac 30 Mg/Ml Sdv) 15 mg IVPUSH Q6H [facility] Stop: 04/24/20 23:59 Last Admin: 04/24/20 08:12 Dose: 15 mg Documented by: Ketorolac Tromethamine (Ketorolac 15 Mg/Ml Sdv) 15 mg IVPUSH Q6H PRN PRN Reason: Pain (moderate 4-6) Stop: 04/29/20 14:46 Metformin HCl (Metformin 500 Mg Tab) 1,000 mg PO BIDMEALS [facility] Last Admin: 04/23/20 17:47 Dose: 1,000 mg Documented by: Methylprednisolone Sodium Succinate (Methylprednisolone Sodium Succinate 125 Mg/2 Ml Sdv) 125 mg IVPUSH ONETIME ONE Stop: 04/23/20 12:30 Last Admin: 04/23/20 12:37 Dose: 125 mg Documented by: Methylprednisolone Sodium Succinate (Methylprednisolone Sodium Succinate 125 Mg/2 Ml Sdv) 60 mg IV DAILY [facility] Stop: 04/25/20 23:59 Last Admin: 04/24/20 08:14 Dose: 60 mg Documented by: Pantoprazole Sodium (Pantoprazole 40 Mg Vial) 40 mg IVPUSH DAILY [facility] Last Admin: 04/24/20 08:14 Dose: 40 mg Documented by: Sodium Chloride (Sodium Chloride 0.9% 10 Ml Syringe) 10 ml FLUSH ASDIRECTED PRN PRN Reason: Keep Vein Open Last Admin: 04/25/20 08:15 Dose: 10 ml Documented by: - Exam Quality Assessment: Reports: DVT Prophylaxis General: Reports: Alert, Oriented, Cooperative, No Acute Distress HEENT: Reports: EOMI, Mucous Membr. Moist/[place], Other (Bilateral tonsils 1+ with no obvious erythema at this time, patient does have mucus/rhinorrhea) Neck: Reports: Lymphadenopathy Lungs: Reports: Clear to Auscultation, Normal Respiratory Effort Cardiovascular: Reports: Regular Rate, Regular Rhythm GI/Abdominal Exam: Normal Bowel Sounds, Soft, Non-Tender Back Exam: Reports: Normal Inspection. Denies: CVA Tenderness (R), CVA Tenderness (L) Extremities: Normal Inspection Skin: Reports: Warm, Dry Neurological: Reports: No New Focal Deficit Psy/Mental Status: Reports: Alert, Normal Affect, Normal Mood
== END 2020-04-26 10:15 | disposition home or self-care (01) | DRG 153 ==
LOC: FB.ED 08:08 → FB.MS 12:21 → UNDOADMOB 12:46 → FB.MS 12:46 → OBSVTOIN 04-24 11:17
PROVIDERS: ADMIT Student in an Organized Health Care Education/Training Program; ATTEND Student in an Organized Health Care Education/Training Program
DX: J36 Peritonsillar abscess (principal); F17.210 Nicotine dependence, cigarettes, uncomplicated; E66.9 Obesity, unspecified; D50.9 Iron deficiency anemia, unspecified; E11.65 Type 2 diabetes mellitus with hyperglycemia; R22.1 Localized swelling, mass and lump, neck; R13.10 Dysphagia, unspecified; R06.00 Dyspnea, unspecified; E78.00 Pure hypercholesterolemia, unspecified; R06.83 Snoring; Z20.822 Contact with and (suspected) exposure to COVID-19; Z88.0 Allergy status to penicillin; Z79.84 Long term (current) use of oral hypoglycemic drugs; Z79.899 Other long term (current) drug therapy; Z90.49 Acquired absence of other specified parts of digestive tract; Z68.36 Body mass index [BMI] 36.0-36.9, adult
CPT/HCPCS: 36415; 70491; 76536; 80048; 80053; 81025; 82272; 82947; 82962; 85025; 86140; 86308; 94760; 96365; 96367; 96372; 96375; 96376; 99285; 99285-25; A9270-GY; C9113; G0378; J0696; J1650; J1815; J1815-GY; J1885; J2930; J3490; J7030; Q9967; U0002

== ENCOUNTER 2021-07-18 21:03 | Inpatient (IN) | payer MEDICAID ==
[2021-07-18] MEDS ORDERED: Acetaminophen/HYDROcodone 325-5 MG Tab PO STA (21:50)
[2021-07-18] MEDS ORDERED: Ondansetron 4 MG/2 ML SDV IVPUSH STA (23:16)
[2021-07-18] MEDS ORDERED: 50% Dextrose in Water 50 ML Syringe IVPUSH PRN (23:16)
[2021-07-18] MEDS ORDERED: Insulin Lispro 100 Unit/ML 3 ML KwikPen SUBCUT STA (23:16)
[2021-07-18] MEDS ORDERED: Glucagon,Human Recombinant 1 MG Vial IM PRN (23:16)
[2021-07-18] MEDS ORDERED: Morphine 4 MG/ML VIAL IVPUSH STA (23:16)
[2021-07-18] MEDS ORDERED: Sodium Chloride 0.9% 10 ML Syringe FLUSH PRN (23:16)
[2021-07-18] MEDS ORDERED: Sodium Chloride 0.9% 1,000 ML IV SCH (23:30)
[2021-07-19] MEDS ORDERED: Insulin Lispro 100 Unit/ML 3 ML KwikPen SUBCUT ONE ×2 (00:06→20:46)
[2021-07-19] MEDS: Sodium Chloride 0.9% 1,000 ML IV SCH ×3 (01:45→22:16)
[2021-07-19 02:07] LABS: BASE EXCESS VENOUS,POC -3 mmol/L (-2 - 3+); PCO2 VENOUS,POC 32 mmHg (41-51); PH VENOUS,POC 7.42 pH Units (7.32-7.43)
[2021-07-19 02:14] LABS: CORONAVIRUS COVID-19 NAA NEGATIVE (NEGATIVE)
[2021-07-19] MEDS ORDERED: 50% Dextrose in Water 50 ML Syringe IVPUSH PRN ×2 (02:39→02:41)
[2021-07-19] MEDS ORDERED: Glucagon,Human Recombinant 1 MG Vial IM PRN ×2 (02:39→02:41)
[2021-07-19] MEDS ORDERED: Fluticasone NASAL Spray 16 GM Bottle NASBOTH PRN (02:41)
[2021-07-19] MEDS ORDERED: Enoxaparin 40 MG/0.4 ML Syringe SUBCUT SCH (02:45)
[2021-07-19] MEDS ORDERED: Azithromycin 500 MG in Sodium Chloride 0.9% 250 ML IV SCH (02:45)
[2021-07-19] MEDS ORDERED: Albuterol/Ipratropium 3.0-0.5 MG/3 ML Neb Soln NEB SCH (02:45)
[2021-07-19] MEDS ORDERED: Ondansetron 4 MG/2 ML SDV IV PRN (03:00)
[2021-07-19] MEDS ORDERED: cefTRIAXone 1 GM Vial IVPUSH SCH (03:00)
[2021-07-19] MEDS: Azithromycin 500 MG in Sodium Chloride 0.9% 250 ML IV SCH (03:10)
[2021-07-19] MEDS: Albuterol/Ipratropium 3.0-0.5 MG/3 ML Neb Soln NEB PRN (04:20)
[2021-07-19] MEDS: Morphine 4 MG/ML VIAL IVPUSH PRN ×4 (04:42→23:30)
[2021-07-19] MEDS: Acetaminophen 325 MG Tab PO PRN ×3 (06:08→18:25)
[2021-07-19] MEDS ORDERED: Insulin Glargine,Human Rec. Analog 100 Units/ML 3 ML Pen SUBCUT ONE ×2 (08:38→16:31)
[2021-07-19] MEDS: Insulin Lispro 100 Unit/ML 3 ML KwikPen SUBCUT SCH ×5 (08:44→19:44)
[2021-07-19] MEDS: metFORMIN 500 MG Tab PO SCH ×2 (08:46→20:31)
[2021-07-19] MEDS: Ferrous Sulfate 325 MG Tab PO SCH ×2 (08:47→20:31)
[2021-07-19] MEDS ORDERED: Insulin Glargine,Human Rec. Analog 100 Units/ML 3 ML Pen SUBCUT SCH (09:00)
[2021-07-19] MEDS: metroNIDAZOLE/Normal Saline 500 MG in Premix Bag 1 BAG IV SCH ×2 (09:50→16:21)
[2021-07-19] MEDS ORDERED: Ciprofloxacin in D5W 400 MG in Premix Bag 1 BAG IV SCH ×2 (10:00)
[2021-07-19] MEDS: Albuterol 0.083% 2.5 MG/3 ML Neb Soln NEB PRN (11:10)
[2021-07-19] MEDS: Acetaminophen/HYDROcodone 325-7.5 MG Tab PO PRN ×3 (11:53→20:16)
[2021-07-19] MEDS: Gabapentin 300 MG Cap PO PRN (11:54)
[2021-07-19] MEDS: atorvaSTATin 40 MG Tab PO SCH (20:30)
[2021-07-19] MEDS: rOPINIRole 0.5 MG Tab PO SCH (20:31)
[2021-07-20] MEDS ORDERED: Ciprofloxacin in D5W 400 MG in Premix Bag 1 BAG IV SCH ×2
[2021-07-20] MEDS: metroNIDAZOLE/Normal Saline 500 MG in Premix Bag 1 BAG IV SCH ×2 (00:51→09:03)
[2021-07-20] MEDS: Azithromycin 500 MG in Sodium Chloride 0.9% 250 ML IV SCH (03:12)
[2021-07-20] MEDS: Gabapentin 300 MG Cap PO PRN ×3 (03:26→20:56)
[2021-07-20] MEDS: Acetaminophen 325 MG Tab PO PRN ×2 (03:26→20:56)
[2021-07-20] MEDS: Albuterol 0.083% 2.5 MG/3 ML Neb Soln NEB PRN ×3 (04:58→20:56)
[2021-07-20] MEDS: Acetaminophen/HYDROcodone 325-7.5 MG Tab PO PRN ×5 (05:43→22:33)
[2021-07-20] MEDS: Insulin Lispro 100 Unit/ML 3 ML KwikPen SUBCUT SCH ×6 (08:25→18:28)
[2021-07-20] MEDS: metFORMIN 500 MG Tab PO SCH ×2 (08:28→20:55)
[2021-07-20] MEDS: Ferrous Sulfate 325 MG Tab PO SCH ×2 (08:29→20:55)
[2021-07-20] MEDS: Enoxaparin 40 MG/0.4 ML Syringe SUBCUT SCH (08:29)
[2021-07-20] MEDS: Morphine 4 MG/ML VIAL IVPUSH PRN (08:58)
[2021-07-20] MEDS ORDERED: Insulin Glargine,Human Rec. Analog 100 Units/ML 3 ML Pen SUBCUT SCH (09:00)
[2021-07-20 10:16] LABS: PO2 ARTERIAL,POC 57 mmHg (83-108)
[2021-07-20] MEDS: Sodium Chloride 1 GM Tab PO SCH ×2 (10:31→20:55)
[2021-07-20] MEDS: Levofloxacin/Dextrose 5%-Water 750 MG in Premix Bag 1 BAG IV SCH (10:37)
[2021-07-20] MEDS: Albuterol/Ipratropium 3.0-0.5 MG/3 ML Neb Soln NEB PRN (14:28)
[2021-07-20] MEDS: atorvaSTATin 40 MG Tab PO SCH (20:55)
[2021-07-20] MEDS: rOPINIRole 0.5 MG Tab PO SCH (20:55)
[2021-07-20] MEDS ORDERED: Clotrimazole 1% Vaginal Crm 45 GM Tube VAG SCH (21:00)
[2021-07-20] MEDS: Sodium Chloride 0.9% 1,000 ML IV SCH (22:15)
[2021-07-21] MEDS: Gabapentin 300 MG Cap PO PRN ×2 (05:21→11:52)
[2021-07-21] MEDS: Acetaminophen 325 MG Tab PO PRN (05:21)
[2021-07-21] MEDS ORDERED: LORazepam 2 MG/ML SDV IVPUSH ONE (07:49)
[2021-07-21] MEDS: Insulin Lispro 100 Unit/ML 3 ML KwikPen SUBCUT SCH ×4 (08:13→11:53)
[2021-07-21] MEDS: Acetaminophen/HYDROcodone 325-7.5 MG Tab PO PRN (08:16)
[2021-07-21] MEDS: Ferrous Sulfate 325 MG Tab PO SCH (08:17)
[2021-07-21] MEDS: metFORMIN 500 MG Tab PO SCH (08:17)
[2021-07-21] MEDS: Enoxaparin 40 MG/0.4 ML Syringe SUBCUT SCH (08:20)
[2021-07-21] MEDS: Sodium Chloride 1 GM Tab PO SCH (08:21)
[2021-07-21] MEDS: Albuterol/Ipratropium 3.0-0.5 MG/3 ML Neb Soln NEB PRN (08:40)
[2021-07-21] MEDS ORDERED: Insulin Glargine,Human Rec. Analog 100 Units/ML 3 ML Pen SUBCUT SCH (09:00)
[2021-07-21] MEDS ORDERED: LORazepam 0.5 MG Tab PO PRN (09:23)
[2021-07-21] MEDS: Levofloxacin/Dextrose 5%-Water 750 MG in Premix Bag 1 BAG IV SCH (09:26)
[2021-07-21] MEDS ORDERED: Sodium Chloride 0.9% 250 ML IV SCH (09:30)
[2021-07-21 13:30] VITALS: BP 140/77; PULSE 115
[2021-07-22 09:08] LABS: IRON BIND.CAP.(TIBC) 168 ug/dL (250-450); IRON SATURATION 5 % (15-55); IRON, SERUM 9 ug/dL (27-159); UIBC 159 ug/dL (131-425)
== END 2021-07-21 13:15 | DRG 871 ==
LOC: FB.ED 21:03 → FB.MS 07-19 02:48 → OBSVTOIN 07-20 10:08
PROVIDERS: ADMIT Emergency Medicine; ATTEND Family Medicine
PROC: 30233N1 Transfusion of Nonautologous Red Blood Cells into Peripheral Vein, Percutaneous Approach (ICD-10-PCS; principal; 2021-07-20)
PROC: 3E03329 Introduction of Other Anti-infective into Peripheral Vein, Percutaneous Approach (ICD-10-PCS; 2021-07-20)
DX: A41.89 Other specified sepsis (principal); J18.9 Pneumonia, unspecified organism; J96.90 Respiratory failure, unspecified, unspecified whether with hypoxia or hypercapnia; N10 Acute pyelonephritis; E87.1 Hypo-osmolality and hyponatremia; N17.9 Acute kidney failure, unspecified; Z20.822 Contact with and (suspected) exposure to COVID-19; D64.9 Anemia, unspecified; E11.65 Type 2 diabetes mellitus with hyperglycemia; F17.210 Nicotine dependence, cigarettes, uncomplicated; E86.0 Dehydration; E78.00 Pure hypercholesterolemia, unspecified; K21.9 Gastro-esophageal reflux disease without esophagitis; E66.9 Obesity, unspecified; K80.20 Calculus of gallbladder without cholecystitis without obstruction; F41.0 Panic disorder [episodic paroxysmal anxiety]; Z88.0 Allergy status to penicillin; Z79.899 Other long term (current) drug therapy; Z68.38 Body mass index [BMI] 38.0-38.9, adult
CPT/HCPCS: 0240U; 36410; 36415; 36430; 71045; 71250; 74176; 80048; 80053; 80307; 81001; 81025; 82150; 82728; 82803; 82947; 83036; 83540; 83550; 83605; 83690; 85025; 85045; 86850; 86900; 86901; 86920; 86922; 87040; 87086; 94150; 94640; 96361; 96374; 96375; 99283; 99285-25; A9270-GY; J0456; J0696; J0744; J1650; J1815; J1815-GY; J1956; J2060; J2270; J2405; J3490; J7030; J7050; J7620; P9016

== ENCOUNTER 2021-10-25 14:40 | Emergency (ER) | payer MEDICAID ==
[2021-10-25 14:58] VITALS: PULSE 120
[2021-10-25 15:57] VITALS: BP 127/77
== END 2021-10-25 15:30 | disposition home or self-care (01) ==
LOC: FB.ED 14:40
DX: J02.9 Acute pharyngitis, unspecified (principal); E11.9 Type 2 diabetes mellitus without complications; E66.9 Obesity, unspecified; Z68.37 Body mass index [BMI] 37.0-37.9, adult; Z88.0 Allergy status to penicillin; Z79.899 Other long term (current) drug therapy; Z79.84 Long term (current) use of oral hypoglycemic drugs; Z79.4 Long term (current) use of insulin; Z90.49 Acquired absence of other specified parts of digestive tract
CPT/HCPCS: 99282

== ENCOUNTER 2021-10-28 19:12 | Emergency (ER) | payer MEDICAID ==
[2021-10-28] MEDS ORDERED: Iopamidol 755 Mg/ML 75 ML Bottle IV ONE (19:47)
[2021-10-28 20:14] LABS: ESTIMATED GFR 117 mL/min (>60)
[2021-10-28] MEDS ORDERED: Clindamycin Phosphate 900 MG in Sodium Chloride 0.9% 100 ML IV ONE (20:35)
[2021-10-28] MEDS ORDERED: Dexamethasone 4 MG/ML SDV IVPUSH ONE (20:36)
[2021-10-28] MEDS ORDERED: Clindamycin in 0.9 % Sod Chlor 900 MG/50 ML BAG ONE (20:57)
[2021-10-28] MEDS ORDERED: Clindamycin in 0.9 % Sod Chlor 900 MG/50 ML BAG IV ONE (21:15)
[2021-10-28 21:41] VITALS: BP 142/82; PULSE 118
== END 2021-10-28 22:20 ==
LOC: FB.ED 19:12
DX: J36 Peritonsillar abscess (principal); E11.9 Type 2 diabetes mellitus without complications; F41.9 Anxiety disorder, unspecified; E78.00 Pure hypercholesterolemia, unspecified; E66.9 Obesity, unspecified; Z68.37 Body mass index [BMI] 37.0-37.9, adult; Z79.899 Other long term (current) drug therapy; Z88.0 Allergy status to penicillin
CPT/HCPCS: 36415; 70491; 80053; 85025; 86140; 87040; 96365; 96375; 99283; J1100; J3490; Q9967